=== PATIENT | female | born 1930 | race Caucasian/White ===

== ENCOUNTER 2016-11-14 21:56 | Inpatient (IN) | payer MEDICARE, OTHER ==
[~2016-11-14] VITALS: Ht 162.6 cm; Wt 63.2 kg
[~2016-11-14 21:56] MED LIST: ASPI81CH CHEW; PLAV75TA29 PO; PROT40TA PO; UMEC1AER INH
[2016-11-14 22:00] VITALS: BP 131/79; PULSE 111; RESP 20; TEMP 97.7; O2SAT 88; O2SAT 92
[2016-11-14] MEDS ORDERED: cefTRIAXone INJ 2,000 MG in SODIUM CHLORIDE 0.9% INJ 100 ML IV STA (22:11)
[2016-11-14] MEDS ORDERED: AZITHROMYCIN INJ 500 MG in SODIUM CHLOR 0.9% 250 ML INJ 250 ML IV STA (22:11)
[2016-11-14 22:12] VITALS: PULSE 109
[2016-11-14] MEDS ORDERED: RESP: ALBUTEROL 2.5 MG/IPRATROPIUM 0.5 MG NEB (SCH) INH ONE (22:15)
[2016-11-14] MEDS ORDERED: SODIUM CHLORIDE 0.9% FLUSH 5 ML FLUSH IVF PRN (22:15)
[2016-11-14 22:30] LABS: AUTOMATED NEUTROPHIL # 4.4 TH/MM3 (1.8-7.7); BASOPHIL % 0.6 % (0.0-2.0); EOSINOPHIL # 0.3 TH/MM3 (0-0.4); EOSINOPHIL % 3.3 % (0.0-4.0); HEMATOCRIT 41.8 % (35.0-46.0); HEMO FLAGS DIFF FINAL; LYMPH % 31.6 % (9.0-44.0); LYMPHOCYTE # 2.6 TH/MM3 (1.0-4.8); MEAN CORPUSCULAR HEMOGLOBIN 31.6 PG (27.0-34.0); MEAN CORPUSCULAR HGB CONC 32.9 % (32.0-36.0); MONO % 10.3 % (0.0-8.0); NEUT % 54.2 % (16.0-70.0); PLATELET COUNT 303 TH/MM3 (150-450); RED BLOOD COUNT 4.36 MIL/MM3 (4.00-5.30); RED CELL DISTRIBUTION WIDTH 14.2 % (11.6-17.2); WHITE BLOOD COUNT 8.2 TH/MM3 (4.0-11.0)
[2016-11-14 22:43] LABS: APTT (PATIENT) 28.5 SEC (24.3-30.1); INTERNATIONAL NORMALIZED RATIO 1.4 RATIO; PROTHROMBIN TIME - PATIENT 15.7 SEC (9.8-11.6)
[2016-11-14 22:58] LABS: ALKALINE PHOSPHATASE 57 U/L (45-117); ALT (GPT) 19 U/L (10-53); ANION GAP 5 MEQ/L (5-15); AST (GOT) 46 U/L (15-37); BICARBONATE 28.8 MEQ/L (21.0-32.0); BLOOD UREA NITROGEN 7 MG/DL (7-18); CHLORIDE 107 MEQ/L (98-107); CREATINE KINASE 136 U/L (26-192); GLOMERULAR FILTRATION RATE 59 ML/MIN (>89); MAGNESIUM 1.8 MG/DL (1.5-2.5); SODIUM (NA) 141 MEQ/L (136-145); TOTAL BILIRUBIN ADULT 0.9 MG/DL (0.2-1.0)
--- NOTE | 2016-11-14 23:04 | PD ---
HPI Chief Complaint: Respiratory Distress Time Seen by Provider: 22:09 Travel History International Travel<30 days: No Contact w/Intl Traveler<30days: No Traveled to known affect area: No History of Present Illness HPI The patient is an 86 year old female who presents to the [facility] emergency department with a history of coughing and congestion that first began approximately 3 weeks ago. She reports that she went and saw her primary care physician and was given a Z-Hansel. She reports that she thought that she was beginning to feel improved, however today her symptoms began to get worse again. She reports that she has coughing spells that precipitate terrible shortness of breath. She reports that it feels like all of the oxygen is " being sucked out of the room". She reports that she does have a history of COPD and is chronically O2 dependent on 3 L of nasal cannula O2. Ambulance services were called to her home and the patient was noted to be saturating on her usual 3 L nasal cannula 82%. The patient was noted to have a productive sounding cough, wheezes and rhonchi according to them, therefore they gave her albuterol nebulizer treatments 3 and Solu-Medrol 125 mg IV 1. On arrival, the patient reports feeling somewhat improved. Her O2 saturation on her usual 3 L is noted to be between 89 and 91%. The patient reports that over the last week her cough is productive of yellow sputum. The patient denies having any known fevers, however she reports having chills. The patient denies having any neck pain, chest pain, abdominal pain, vomiting, diarrhea, urinary symptoms, or neurologic symptoms. [facility] Past Medical History Narrative Medical The patient's past medical history is significant for COPD, history of a recent TIA, history of a prior cerebrovascular accident without any residual weakness, history of fibromyalgia, and hypertension. The patient reports having a history of congestive heart failure. The patient denies any prior history of myocardial infarction. Arthritis: Yes Asthma: No Anxiety: No Depression: No Heart Rhythm Problems: No Cancer: No Cardiovascular Problems: Yes High Cholesterol: No Chemotherapy: No Chest Pain: No Congestive Heart Failure: No COPD: Yes Cerebrovascular Accident: Yes (tia) Endocrine: No Genitourinary: Yes Hypertension: Yes Immune Disorder: No Kidney Stones: No Musculoskeletal: Yes (FIBROMALASIA) Neurologic: Yes Psychiatric: No Reproductive: No Respiratory: Yes (COPD 3L NC AT HOME CONTINUOUS) Migraines: No Radiation Therapy: No Renal Failure: No Seizures: No Sleep Apnea: No Menopausal: Yes Past Surgical History Narrative Surgical The patient's past surgical history is significant for a . Abdominal Surgery: Yes (HERNIA REPAIR) Cardiac Surgery: No Section: Yes Ear Surgery: No Endocrine Surgery: No Eye Surgery: No Genitourinary Surgery: No Gynecologic Surgery: Yes (C/ SECTION) Oral Surgery: No Thoracic Surgery: No Other Surgery: Yes Social History Alcohol Use: No Tobacco Use: No Substance Use: No Allergies-Medications (Allergen,Severity, Reaction): Coded Allergies: Cipro (Verified Allergy, Severe, Rash, 11/14/16) Penicillin (Verified Allergy, Severe, Rash, 11/14/16) Reported Meds & Prescriptions Reported Meds & Active Scripts Active Reported Anoro Ellipta Inh (Umeclidinium/Vilanterol) 62.5-25 Mcg/Act Aero 1 Puff INH DAILY Aspirin 81 Mg Chew 81 Mg CHEW DAILY Protonix (Pantoprazole Sodium) 40 Mg Tab 40 Mg PO DAILY Plavix (Clopidogrel Bisulfate) 75 Mg Tab 75 Mg PO DAILY Review of Systems Except as stated in HPI: all other systems reviewed are Neg General / Constitutional: Positive: Chills, No: Fever Eyes: No: Visual changes HENT: Positive: Rhinorrhea, Congestion, No: Headaches Cardiovascular: Positive: Dyspnea on exertion, No: Chest Pain or Discomfort Respiratory: Positive: Cough, Shortness of Breath, Wheezing, Sneezing Gastrointestinal: No: Nausea, Vomiting, Diarrhea, Abdominal Pain, Changes in Bowel Habits, Indigestion, Loss of Appetite Genitourinary: No: Dysuria Musculoskeletal: No: Pain Skin: No Rash Neurologic: Positive: Weakness (generalized weak), No: Focal Abnormalities, Paresthesia, Sensory Disturbance Psychiatric: No: Depression Endocrine: No: Polydipsia Hematologic/Lymphatic: No: Easy Bruising Physical Exam Narrative General: The patient is a well-developed well-nourished female, with noted recurrent cough on examination that is productive of yellow sputum. Head and Neck exam: Head is normocephalic atraumatic. Eyes: Pupils are equal round and reactive to light. Nose: Midline septum with pink mucous membranes Mouth: Dentition unremarkable. Moist mucus membranes. Posterior oropharynx is not erythematous. No tonsillar hypertrophy. Uvula midline. Airway patent. Neck: No palpable lymphadenopathy. No nuchal rigidity. No thyromegaly. Cardiovascular: Sinus tachycardia in the low 100 without murmurs, gallops, or rubs. No pulse deficit to the extremities and simultaneous auscultation and palpation of her radial artery. Lungs: Clear to auscultation bilaterally with occasional rhonchi that clear with coughing. No wheezes or crackles are audible. Abdomen: Soft, without tenderness to palpation in all 4 quadrants of the abdomen. No guarding, rebound, or rigidity. Normal bowel sounds are audible. Extremities: No clubbing or cyanosis. The patient has trace to 1+ pitting edema bilateral lower extremities. She reports that this is chronic and no worse than usual. 2 + pulses in all 4 extremities. Back: No spinous process tenderness to palpation. No costovertebral angle tenderness to palpation. Neurologic Exam: Grossly nonfocal. Skin Exam: No rash noted. Intact skin that is warm and dry. Data Data Last Documented VS Vital Signs Date Time Temp Pulse Resp B/P Pulse Ox O2 Delivery O2 Flow Rate FiO2 11/14/16 22:12 109 11/14/16 22:04 92 Nasal Cannula 4 11/14/16 22:00 97.7 20 131/79 Orders Complete Blood Count With Diff (11/14/16 22:09) Comprehensive Metabolic Panel (11/14/16 22:09) B-Type Natriuretic Peptide (11/14/16 22:09) Act Partial Throm Time (Ptt) (11/14/16 22:09) Prothrombin Time / Inr (Pt) (11/14/16 22:09) Magnesium (Mg) (11/14/16 22:09) Ckmb (Isoenzyme) Profile (11/14/16 22:09) Troponin I (11/14/16 22:09) Urinalysis - C+S If Indicated (11/14/16 22:09) Influenzae A/B Antigen (11/14/16 22:09) Blood Culture (11/14/16 22:09) Iv Access Insert/Monitor (11/14/16 22:09) Electrocardiogram (11/14/16 22:09) Ecg Monitoring (11/14/16 22:09) Oximetry (11/14/16 22:09) Oxygen Administration (11/14/16 22:09) Chest, Single Ap (11/14/16 22:09) Sodium Chloride 0.9% Flush (Ns Flush) (11/14/16 22:15) Albuterol-Ipratropium Neb (Duoneb Neb) (11/14/16 22:15) Lactic Acid Sepsis Protocol (11/14/16 22:09) Ceftriaxone Inj (Rocephin Inj) (11/14/16 22:11) Azithromycin Inj (Zithromax Inj) (11/14/16 22:11) CKMB (11/14/16 22:05) CKMB% (11/14/16 22:05) Nitroglycerin 2% Oint (Nitroglycerin 2% (11/14/16 23:45) Aspirin Chew (Aspirin Chew) (11/14/16 23:45) Heparin Infusion SY[place]NEY.Q1H (11/14/16 23:44) Heparin-D5w Inj (Heparin-D5w Inj) (11/14/16 23:45) Act Partial Throm Time (Ptt) (11/14/16 23:44) Cbc No Diff, Includes Plts (11/14/16 23:44) Cbc No Diff, Includes Plts (11/17/16 06:00) Act Partial Throm Time (Ptt) (11/15/16 06:44) Occult Blood (Hemoccult) Stool (11/14/16 23:44) Admit Order (Ed Use Only) (11/14/16 23:45) Labs Laboratory Tests Test 11/14/16 22:05 White Blood Count 8.2 TH/MM3 Red Blood Count 4.36 MIL/MM3 Hemoglobin 13.7 GM/DL Hematocrit 41.8 % Mean Corpuscular Volume 96.0 FL Mean Corpuscular Hemoglobin 31.6 PG Mean Corpuscular Hemoglobin 32.9 % Concent Red Cell Distribution Width 14.2 % Platelet Count 303 TH/MM3 Mean Platelet Volume 8.7 FL Neutrophils (%) (Auto) 54.2 % Lymphocytes (%) (Auto) 31.6 % Monocytes (%) (Auto) 10.3 % Eosinophils (%) (Auto) 3.3 % Basophils (%) (Auto) 0.6 % Neutrophils # (Auto) 4.4 TH/MM3 Lymphocytes # (Auto) 2.6 TH/MM3 Monocytes # (Auto) 0.8 TH/MM3 Eosinophils # (Auto) 0.3 TH/MM3 Basophils # (Auto) 0.0 TH/MM3 CBC Comment DIFF FINAL Differential Comment Prothrombin Time 15.7 SEC Prothromb Time International 1.4 RATIO Ratio Activated Partial 28.5 SEC Thromboplast Time Sodium Level 141 MEQ/L Potassium Level 4.8 MEQ/L Chloride Level 107 MEQ/L Carbon Dioxide Level 28.8 MEQ/L Anion Gap 5 MEQ/L Blood Urea Nitrogen 7 MG/DL Creatinine 0.90 MG/DL Estimat Glomerular Filtration 59 ML/MIN Rate Random Glucose 113 MG/DL Lactic Acid Level 1.1 mmol/L Calcium Level 8.5 MG/DL Magnesium Level 1.8 MG/DL Total Bilirubin 0.9 MG/DL Aspartate Amino Transf 46 U/L (AST/SGOT) Alanine Aminotransferase 19 U/L (ALT/SGPT) Alkaline Phosphatase 57 U/L Total Creatine Kinase 136 U/L Creatine Kinase MB 2.0 NG/ML Troponin I 6.44 NG/ML B-Type Natriuretic Peptide 1954 PG/ML Total Protein 7.0 GM/DL Albumin 2.8 GM/DL MDM Medical Decision Making Medical Screen Exam Complete: Yes Emergency Medical Condition: Yes Medical Record Reviewed: Yes Interpretation(s) Last Impressions Chest X-Ray 11/14/164 Signed Impressions: Service Date/Time: Monday, November 14, 2016 22:55 - CONCLUSION: Left base infiltrate. Dayton Reza MD Differential Diagnosis Pneumonia, versus influenza, versus congestive heart failure exacerbation, versus COPD exacerbation, versus acute coronary syndrome. Narrative Course During the course of the patients emergency department visit, the patients history, examination, and differential diagnosis were reviewed with the patient. The patient had IV access obtained and blood work sent for analysis. The patient was placed on a cardiac exercise physiologist with oximetry and blood pressure monitoring. An EKG was ordered. The patient's EKG shows a sinus tachycardia with occasional supraventricular premature complexes, marked right axis deviation is noted, a right bundle branch block is noted. No other acute abnormality is noted. The chest x-ray was ordered. A flu swab was sent. A lactic acid was sent, blood cultures 2 were ordered. The patient was provided a DuoNeb 1, Rocephin 2 g IV, azithromycin 500 mg IV. The patients laboratory studies were reviewed and remarkable for a white count of 8.2, hemoglobin 13.7, platelets 303 with 10.3 monocytes. CMP is remarkable for a glucose of 113, AST 46, CPK 136, troponin I 6.44, BNP is 1954, lactic acid 1.1, INR 1.4, urinalysis unremarkable. Given the patient's elevated troponin the patient was given aspirin 162 mg by mouth 1. The patient was given an inch of Nitropaste to the chest wall. The patient denies having any chest pain. The patient was started on heparin IV drip due to a suspected non- ST segment elevation myocardial infarction. The patient's case is discussed with Dr. Ferrari, the covering supervisor production for the patient's supervisor production, Dr. john he requested that the patient also be placed on metoprolol. The patient was given a low-dose of metoprolol given her prior wheezing. She was given 4.5 mg by mouth 1. Radiology studies were reviewed and remarkable for a chest x-ray that shows a left lower lobe infiltrate. The patients results were discussed with the patient, including the plan of care. I explained that further testing and/ or monitoring is indicated based on the patients history, examination, and/ or laboratory findings. Therefore, I recommended admission for additional evaluation. The patient expressed understanding and was agreeable with this plan. The patient was admitted to the hospital in guarded condition and [facility]. Sepsis Criteria SIRS Criteria (2 or more): Heart rate over 90 Sepsis Criteria (SIRS+source): Infect source susp/known Physician Communication Physician Communication The patient's case was discussed with Dr. Lester who did agree to admit the patient for further evaluation and treatment at this time. I spoke to Dr. Ferrari the covering supervisor production for the patient's supervisor production, Dr. Chirinos at 11:55 PM. He recommended that the patient be started on metoprolol in addition to the aspirin, nitroglycerin paste, and heparin that was previously started by me. Diagnosis Primary Impression: Left lower lobe pneumonia Qualified Code: J18.1 - Pneumonia of left lower lobe due to infectious organism Additional Impressions: Acute non-ST segment elevation myocardial infarction Hypoxemia COPD exacerbation Admitting Information Admitting Physician Requests: Admit Fozia Caballero MD Nov 14, 2016 23:04
[2016-11-14 23:09] LABS: POTASSIUM 4.8 MEQ/L (3.5-5.1)
--- NOTE | 2016-11-14 23:31 | RADRPT ---
EXAM DATE/TIME: 11/14/2016 22:55 [facility] COMPARISON: CHEST SINGLE AP, June 03, 2016, 14:15. INDICATIONS : Shortness of breath. MEDICAL HISTORY : Chronic obstructive pulmonary disease. SURGICAL HISTORY : None. ENCOUNTER: Initial ACUITY: 1 day PAIN SCORE: 0/10 LOCATION: Bilateral chest FINDINGS: There is consolidation in the left lung base. Right lung is stable and grossly clear. Cardiomediastin al contours are stable with borderline heart size. CONCLUSION: Left base infiltrate. Dayton Reza MD on November 14, 2016 at 23:29 Board Certified Radiologist. This report was verified electronically.
--- NOTE | 2016-11-14 23:37 | HHI.HP ---
HPI Service [facility] Primary Care Physician Krissy Villa MD Admission Diagnosis Diagnoses: (1) NSTEMI (non-ST elevated myocardial infarction) Diagnosis: Principal (2) COPD (chronic obstructive pulmonary disease) Diagnosis: Principal (3) Hypoxia Diagnosis: Principal (4) PNA (pneumonia) Diagnosis: Principal Travel History International Travel<30 Days: No Contact w/Intl Traveler <30 Da: No Traveled to Known Affected Are: No History of Present Illness This is an 86-year-old female with a PMH of HTN, COPD, O2 Dependent on 3L NC, Fibromyalgia and h/o TIA/CVA who was brought to the ER by EMS secondary to SOB and productive cough. Son provides most of the history, states symptoms have been ongoing for approx 2wks. Was seen by PCP and started on Z-Pack which she completed without significant improvement. Denies fever, chills or chest pain. Upon EMS arrival, pt noted to have O2 sat 82% on 3L w/ wheezing, s/p Solu- Medrol and DuoNeb w/ improvement. Son reports O2 sat normally "mid 80's" at home on oxygen. On arrival to ER, BP 131/79, HR 111, O2 sat 88% on 5L NC, Afebrile. Currently 95% O2 on NRM. CBC unremarkable. Chemistry essentially unremarkable. Troponin 6.44. BNP 1954. UA negative. ABG pH 7.41, PCO2 40, PO2 51. CXR with left base infiltrate. s/p Rocephin/Zithro in ER. Cardiology consulted by ER physician, started on Heparin gtt. Follows w/ Dr. Sal[place] and Dr. Brian Huynh as outpatient. Review of Systems Other ROS: 14 point review of systems otherwise negative. Past Family Social History Past Medical History PMH: HTN, COPD, O2 Dependent on 3L NC, Fibromyalgia and h/o TIA/CVA Past Surgical History PAST SURGICAL HISTORY: Hernia Repair, Allergies: Coded Allergies: Cipro (Verified Allergy, Severe, Rash, 11/14/16) Penicillin (Verified Allergy, Severe, Rash, 11/14/16) Family History PAST FAMILY HISTORY: Reviewed. No h/o DM or CAD Social History PAST SOCIAL HISTORY: Negative for alcohol, tobacco or drugs. Physical Exam Vital Signs Vital Signs Date Time Temp Pulse Resp B/P Pulse Ox O2 Delivery O2 Flow Rate FiO2 11/14/16 22:12 109 11/14/16 22:04 92 Nasal Cannula 4 11/14/16 22:00 92 Nasal Cannula 5.00 11/14/16 22:00 97.7 111 20 131/79 88 Physical Exam PE: GENERAL: Elderly white female in no acute distress. Currently on NRM. Son and [id number] at bedside. HEENT: PERRLA, EOMI. No scleral icterus or conjunctival pallor. No lid lag or facial droop. CARDIOVASCULAR: Regular rate and rhythm. No obvious murmurs to auscultation. No chest tenderness to palpation. RESPIRATORY: Occasional rhonchi and scattered wheezing. Clear to auscultation. Breath sounds equal bilaterally. GASTROINTESTINAL: Abdomen soft, non-tender, nondistended. BS normal. MUSCULOSKELETAL: Extremities without clubbing, cyanosis. 1+ pitting edema bilaterally. No obvious deformities. NEUROLOGICAL: Awake, alert and oriented x4. No focal neurologic deficits. Moving both upper and lower extremities spontaneously. Laboratory Laboratory Tests Test 11/14/16 22:05 White Blood Count 8.2 Red Blood Count 4.36 Hemoglobin 13.7 Hematocrit 41.8 Mean Corpuscular Volume 96.0 Mean Corpuscular Hemoglobin 31.6 Mean Corpuscular Hemoglobin 32.9 Concent Red Cell Distribution Width 14.2 Platelet Count 303 Mean Platelet Volume 8.7 Neutrophils (%) (Auto) 54.2 Lymphocytes (%) (Auto) 31.6 Monocytes (%) (Auto) 10.3 Eosinophils (%) (Auto) 3.3 Basophils (%) (Auto) 0.6 Neutrophils # (Auto) 4.4 Lymphocytes # (Auto) 2.6 Monocytes # (Auto) 0.8 Eosinophils # (Auto) 0.3 Basophils # (Auto) 0.0 CBC Comment DIFF FINAL Differential Comment Prothrombin Time 15.7 Prothromb Time International 1.4 Ratio Activated Partial 28.5 Thromboplast Time Sodium Level 141 Potassium Level 4.8 Chloride Level 107 Carbon Dioxide Level 28.8 Anion Gap 5 Blood Urea Nitrogen 7 Creatinine 0.90 Estimat Glomerular Filtration 59 Rate Random Glucose 113 Lactic Acid Level 1.1 Calcium Level 8.5 Magnesium Level 1.8 Total Bilirubin 0.9 Aspartate Amino Transf 46 (AST/SGOT) Alanine Aminotransferase 19 (ALT/SGPT) Alkaline Phosphatase 57 Total Creatine Kinase 136 Creatine Kinase MB 2.0 Troponin I 6.44 B-Type Natriuretic Peptide 1954 Total Protein 7.0 Albumin 2.8 Date/Time Procedure Status Source Growth 11/14/16 22:14 Influenza Types A,B Antigen ([place]) - Final Complete Nasal Aspirate NEGATIVE FOR FLU A AND B ANTIGEN.... 11/14/16 21:55 Aerobic Blood Culture Received Blood Peripheral Pending 11/14/16 21:55 Anaerobic Blood Culture Received Blood Peripheral Pending Result Diagram: 11/14/16220411/14/162204 Assessment and Plan Problem List: (1) NSTEMI (non-ST elevated myocardial infarction) ICD Code: I21.4 Status: Acute (2) COPD (chronic obstructive pulmonary disease) ICD Code: J44.9 Status: Chronic (3) PNA (pneumonia) ICD Code: J18.9 Status: Acute (4) Hypoxia ICD Code: R09.02 Status: Acute Assessment and Plan A/P: 1. NSTEMI: Trop 6.44, EKG w/ no acute ischemia, no c/o chest pain. Possibly due to demand ischemia from significant hypoxia. Follows w/ Dr. Parekh as outpatient, Dr. Vega penning[place]. Started on Heparin gtt in ER. Check serial cardiac enzymes. 2. COPD: Chronic Respiratory Failure w/ Acute Exacerbation. O2 Dependent at home on 3L NC. O2 sat 88% on 5L NC per EMS, currently on NRM w/ O2 sat 96%. S/ p Solu-Medrol, DuoNebs. Continue Solu-Medrol, DuoNeb q4 and q2h prn, Symbicort , Mucinex. Follows w/ Dr. Huynh as outpatient, will consult for further recommendations. 3. PNA: CXR w/ LLL infiltrate, images reviewed by me. S/p Z-Pack as outpatient for same. +productive cough w/ yellow-colored sputum. S/p Rocephin/ Zithro in ER, continue w/ IV Abx. Check Sputum Cultures. 4. Hypoxia: Multifactorial-secondary to COPD w/ O2 Dependence, PNA and possible ACS. 5. DVT Prophylaxis: On Heparin 6. Social work for d/c planning as needed. 7. Case discussed w/ ER physician at length. Physician Certification 2 Midnight Certification Type: Admission for Inpatient Services Order for Inpatient Services The services are ordered in accordance with Medicare regulations or non- Medicare payer requirements, as applicable. In the case of services not specified as inpatient-only, they are appropriately provided as inpatient services in accordance with the 2-midnight benchmark. Estimated LOS (days): 2 days is the estimated time the patient will need to remain in the hospital, assuming treatment plan goals are met and no additional complications. Post-Hospital Plan: Not yet determined Felicitas Lester MD Nov 14, 2016 23:37
[2016-11-14] MEDS ORDERED: NITROGLYCERIN 2% OINT 1 GM PACKET TOPICAL ONE (23:45)
[2016-11-14] MEDS ORDERED: ASPIRIN 81 MG CHEW TAB CHEW ONE (23:45)
[2016-11-15] VITALS (27 sets, daily range): BP systolic 105–138; BP diastolic 60–86; PULSE 77–104; RESP 18–25; TEMP 97.7–98.5; O2SAT 88–98
[2016-11-15] MEDS ORDERED: METOPROLOL TARTRATE 25 MG TAB PO ONE ×2
[2016-11-15] MEDS ORDERED: ACETAMINOPHEN 325 MG TAB PO PRN (00:15)
[2016-11-15] MEDS ORDERED: ONDANSETRON HCL 4 MG/2 ML VIAL IVP PRN (00:15)
[2016-11-15] MEDS ORDERED: MORPHINE SULFATE 4 MG/ML INJ IV PRN (00:15)
[2016-11-15] MEDS ORDERED: SODIUM CHLORIDE 0.9% FLUSH 5 ML FLUSH FLUSH PRN (00:15)
[2016-11-15] MEDS ORDERED: BISACODYL 10 MG SUPP PR PRN (00:15)
[2016-11-15 00:18] LABS: BLOOD, URINE NEG (NEG); COMMENT (UR) CULT NOT INDICATED; CULTURE IF INDICATED CULT NOT INDICATED; GLUCOSE,URINE NEG (NEG); KETONE, URINE NEG (NEG); MUCUS URINE FEW /lpf (OCC); NITRITE,URINE NEG (NEG); PH, URINE 5.5 (5.0-8.5); SQUAMOUS EPITHELIAL CELL URINE <1 /hpf (0-5); URINE COLOR YELLOW (YELLW/STRAW)
[2016-11-15 00:19] LABS: BLOOD GAS BASE EXCESS 0.5 mmol/L (-2-2); BLOOD GAS CARBOXYHEMOGLOBIN 1.9 % (0-4); BLOOD GAS HCO3 25 mmol/L (22-26); BLOOD GAS METHEMOGLOBIN 1.9 % (0-2); BLOOD GAS O2 HGB SATURATION 83 % (90-100); BLOOD GAS OXYGEN CONTENT 15.8 Vol % (12.0-20.0); BLOOD GAS PCO2 40 mmHg (38-42); BLOOD GAS PO2 51 mmHG (61-120); BLOOD GAS TOTAL HGB 13.6 G/DL (12.0-16.0); TEMP CORR TO 98.6
[2016-11-15 00:20] LABS: CRITICAL VALUE YES; DRAW SITE RT RADIAL; LITER FLOW 5 L/M; NUMBER OF ARTERIAL PUNCTURES 1; OXYGEN DEVICE NASAL CANNULA; STAT YES; ULNAR PULSE PRESENT
[2016-11-15] MEDS: HEPARIN-D5W INJ 250 ML IV SCH ×2 (00:25→23:22)
[2016-11-15] MEDS: BENZONATATE 100 MG CAP PO PRN ×2 (03:23→22:35)
[2016-11-15] MEDS: RESP: ALBUTEROL 2.5 MG/IPRATROPIUM 0.5 MG NEB (PRN) NEB ×3 (04:11→22:42)
[2016-11-15 06:00] LABS: APTT (PATIENT) 35.7 SEC (24.3-30.1)
[2016-11-15] MEDS ORDERED: RESP: ALBUTEROL 2.5 MG/IPRATROPIUM 0.5 MG NEB (SCH) NEB (08:00)
--- NOTE | 2016-11-15 08:47 | HHI.PR ---
Subjective Remarks f/u; respiratory failure/ NSTEMI says that her sob has improved. has occasional cough.no fever. denies any chest pain. Objective Vitals Vital Signs Date Time Temp Pulse Resp B/P Pulse Ox O2 Delivery O2 Flow Rate FiO2 11/15/16 07:33 97 Partial Rebreather 15.00 11/15/16 06:00 88 11/15/16 05:00 87 11/15/16 04:46 97.9 89 24 117/76 98 11/15/16 04:00 78 11/15/16 03:00 87 11/15/16 02:00 88 11/15/16 01:30 97.9 88 24 119/78 98 11/15/16 00:32 95 Partial Rebreather 12.00 11/15/16 00:26 94 Partial Rebreather 15 11/15/16 00:17 104 18 116/60 88 Nasal Cannula 5 11/14/16 22:12 109 11/14/16 22:04 92 Nasal Cannula 4 11/14/16 22:00 92 Nasal Cannula 5.00 11/14/16 22:00 97.7 111 20 131/79 88 I/O 11/14/16 11/14/16 11/14/16 11/15/16 11/15/16 11/15/16 07:00 15:00 23:00 07:00 15:00 23:00 Intake Total 238 ml Balance 238 ml Intake Oral 200 ml IV Total 38 ml Result Diagram: 11/14/16220411/14/162204 Imaging Last Impressions Chest X-Ray 11/14/162208 Signed Impressions: Service Date/Time: Monday, November 14, 2016 22:55 - CONCLUSION: Left base infiltrate. [place] Reza MD Objective Remarks GENERAL: elderly female, in no acute distress CARDIOVASCULAR: Regular rate and irregular rhythm without murmurs, gallops, or rubs. RESPIRATORY: diminished air entry in bases GASTROINTESTINAL: Abdomen soft, non-tender, nondistended. Normal, active bowel sounds MUSCULOSKELETAL: Extremities without clubbing, cyanosis, or edema. NEURO: Alert & Oriented x4 to person, place, time, situation. Moves all ext x4 Procedures none Medications and IVs Current Medications IV Flush (NS Flush) 2 ml UNSCH PRN IVF FLUSH AFTER USING IV ACCESS; Start 11/14 at 22:15; Stop 11/15/16 at 03:00; Status DC Albuterol/ Ipratropium 1 ampule 1 ampule ONCE ONCE INH Last administered on 22:14; Start 11/14/16 at 22:15; Stop 11/14/16 at 22:16; Status DC Ceftriaxone Sodium 2000 mg/ Sodium Chloride 100 ml @ 200 mls/hr ONCE STAT IV Last administered on 11/14/16 23:09; Start 11/14/16 at 22:11; Stop 11/14/16 at 22:40; Status DC Azithromycin/ Sodium Chloride (Zithromax Inj/ NS 250 ml Inj) 250 ml @ 250 mls/ hr ONCE STAT IV Last administered on 11/14/16 23:36; Start 11/14/16 at 22:11 ; Stop 11/14/16 at 23:10; Status DC Nitroglycerin (Nitroglycerin 2% Oint) 1 inch ONCE ONCE TOPICAL Last administered on 11/15/16 00:00; Start 11/14/16 at 23:45; Stop 11/14/16 at 23:46 ; Status DC Aspirin 162 mg 162 mg ONCE ONCE CHEW Last administered on 11/15/16 00:00; Start 11/14/16 at 23:45; Stop 11/14/16 at 23:46; Status DC Heparin Sodium/ Dextrose (Heparin-D5W Inj) 250 ml @ 0 mls/hr TITRATE IV Last administered on 11/15/16 00:25; Start 11/14/16 at 23:45 Metoprolol Tartrate (Lopressor) 25 mg ONCE ONCE PO ; Start 11/15/16 at 00:00; Stop 11/15/16 at 00:00; Status DC Metoprolol Tartrate 12.5 mg 12.5 mg ONCE ONCE PO Last administered on 00:31; Start 11/15/16 at 00:00; Stop 11/15/16 at 00:01; Status DC Ceftriaxone Sodium 1000 mg/ Sodium Chloride 100 ml @ 200 mls/hr Q24H IV ; Start 11/15/16 at 23:00 Azithromycin/ Sodium Chloride (Zithromax Inj/ NS 250 ml Inj) 250 ml @ 250 mls/ hr Q24H IV ; Start 11/15/16 at 23:00 Guaifenesin (Mucinex Er) 600 mg BID PO ; Start 11/15/16 at 09:00 Budesonide/ Formoterol Fumarate (Symbicort 160-4.5 Inh) 2 puff Q12HR INH ; Start 11/15/16 at 09:00 Albuterol/ Ipratropium (Duoneb Neb) 1 ampule Q4HR WHILE AWAKE NEB NEB Last administered on 11/15/16 07:31; Start 11/15/16 at 08:00 Albuterol/ Ipratropium (Duoneb Neb) 1 ampule Q2HR NEB PRN NEB SOB/WHEEZING Last administered on 11/15/16 04:11; Start 11/15/16 at 00:15 IV Flush (NS Flush) 2 ml UNSCH PRN FLUSH FLUSH AFTER USING IV ACCESS; Start at 00:15 IV Flush (NS Flush) 2 ml BID FLUSH ; Start 11/15/16 at 09:00 Ondansetron HCl (Zofran Inj) 4 mg Q6H PRN IVP NAUSEA OR VOMITING; Start at 00:15 Bisacodyl (Dulcolax Supp) 10 mg DAILY PRN [place] CONSTIPATION; Start 11/15/16 at 00 :15 Acetaminophen (Tylenol) 650 mg Q6H PRN PO FEVER/PAIN SCALE 1 TO 2; Start at 00:15 Acetaminophen/ Hydrocodone Bitart ([place] 5-325 Mg) 1 tab Q4H PRN PO PAIN SCALE 3 TO 5; Start 11/15/16 at 00:15 Morphine Sulfate (Morphine Inj) 2 mg Q3H PRN IV Pain 6-10; Start 11/15/16 at 00 :15 Benzonatate (Tessalon) 100 mg TID PRN PO cough interfering with rest Last administered on 11/15/16 03:23; Start 11/15/16 at 03:00 Carvedilol (Coreg) 3.125 mg Q12HR PO ; Start 11/15/16 at 09:00 Aspirin (Ecotrin Ec) 81 mg DAILY PO ; Start 11/15/16 at 09:00 Pravastatin Sodium (Pravachol) 20 mg DAILY PO ; Start 11/15/16 at 09:00 Spironolactone (Aldactone) 25 mg DAILY PO ; Start 11/15/16 at 09:00 A/P Assessment and Plan A/P 1. NSTEMI: Trop 6.44, EKG w/ no acute ischemia, no c/o chest pain. Possibly due to demand ischemia from significant hypoxia. Follows w/ Dr. Parekh as outpatient. Started on Heparin gtt in ER. continue aspirin , BB and statin- will check lipid panel- cardiology consulted. 2. acute on chronic respiratory failure due to COPD exacerbation and pneumonia ; start Solu-Medrol, DuoNeb q4 and q2h prn, Symbicort, Mucinex. continue IV antibiotics- follow the cultures. Follows w/ Dr. Huynh as outpatient. consulted for further recommendations. 3. DVT Prophylaxis: On Heparin Jose D Royal MD Nov 15, 2016 08:47
[2016-11-15 09:00] LABS: HDL CHOLESTEROL 60.1 MG/DL (40.0-60.0)
[2016-11-15] MEDS ORDERED: BUDESONIDE-FORMOTEROL 160/4.5 MCG INHALER INH SCH (09:00)
[2016-11-15] MEDS ORDERED: methylPREDNISolone SOD SUCC 40 MG/1 ML VIAL IV PUSH SCH (09:00)
[2016-11-15] MEDS: guaiFENesin E.R. 600 MG TAB PO SCH ×2 (10:23→21:41)
[2016-11-15] MEDS: SPIRONOLACTONE 25 MG TAB PO SCH (10:24)
[2016-11-15] MEDS: PRAVASTATIN SOD 20 MG TAB PO SCH (10:24)
[2016-11-15] MEDS: CARVEDILOL 3.125 MG TAB PO SCH ×2 (10:24→21:40)
[2016-11-15] MEDS: ASPIRIN EC 81 MG TABEC PO SCH (10:24)
[2016-11-15] MEDS: SODIUM CHLORIDE 0.9% FLUSH 5 ML FLUSH FLUSH SCH ×2 (10:25→21:41)
[2016-11-15] MEDS: ACETAMINOPHEN/HYDROcodone 325 MG/5 MG TAB PO PRN ×3 (10:25→21:44)
--- NOTE | 2016-11-15 12:01 | MB ---
cc: CARLOS EVANS M.D. DATE OF CONSULTATION: 11/15/2016 REASON FOR CONSULTATION Elevated cardiac enzymes, rule out myocardial infarction. HISTORY OF PRESENT ILLNESS Ms. 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 The patient states that over the past 2-3 weeks she has had an upper respiratory type infection with a severe cough productive of sputum. She saw her primary care physician, Dr. Villa, about 2 weeks ago who prescribed a Z-Hansel for her. She thought things might be getting better until yesterday when her cough worsened. She is normally on continuous 3 liters home oxygen therapy but her oxygen saturations were dipping down into the 70s. She came to the emergency room where she was also found to be hypoxemic with oxygen saturations in the 80s. She has been on a partial non-rebreather mask since that time. She denies any chest pain, just continuous coughing and shortness of breath. Denies any fever at this time. Her troponins were elevated between 6 and 7 with negative CPKs on routine labs on admission. She is currently sitting up in bed on a partial non-rebreather mask with mild to moderate shortness of breath. She denies any chest discomfort now or in the past. She has been taking all of her medication as directed. MEDICATIONS Medications prior to admission: 1. Plavix 75 mg daily. 2. Aspirin 81 mg daily. 3. Protonix 40 mg daily. 4. Cardizem CD 120 mg daily. 5. Xalatan eye drops. She is currently on: 1. Intravenous heparin. 2. Ceftriaxone. 3. Azithromycin. 4. DuoNeb nebulizers. ALLERGIES 1. INTRAVENOUS CONTRAST. 2. PENICILLIN. 3. CIPRO. PAST MEDICAL HISTORY 1. Recurrent UTIs. 2. COPD. 3. Pulmonary hypertension. 4. TIA. 5. Chronic dyspnea. 6. Fibromyalgia. 7. Anxiety disorder. Denies prior history of myocardial infarction or heart failure. PAST SURGICAL HISTORY Herniorrhaphy. FAMILY HISTORY Noncontributory. SOCIAL HISTORY Denies tobacco, alcohol or illicit drug use at this time. Currently living with her son. REVIEW OF SYSTEMS Denies lower extremity edema or claudication. Denies palpitations, lightheadedness or syncope, although she has had problems with that in the past. Denies any bleeding or clotting disorders. Except for that mentioned in the HPI her complete 12-point review of systems is otherwise negative. PHYSICAL EXAMINATION GENERAL: An 86-year-old white female lying in bed in moderate respiratory distress. VITAL SIGNS: Blood pressure 117/76 mmHg, heart rate 88 and regular, respiratory rate 24, temperature 97.9, oxygen saturation 97% on 15 liters, a partial on non-rebreather mask. HEENT: Head is normocephalic and atraumatic. Pupils equal, round and reactive to light. Sclera anicteric. Extraocular movements intact. NECK: Supple. There is no adenopathy. There is mild jugular venous distension noted at 45 degrees. Carotid upstrokes are normal. No bruits. Thyroid exam normal. LUNGS: Decreased breath sounds bilaterally with a few scattered wheezes. HEART: PMI is not displaced. S1, S2 are normal. There are no murmurs, gallops, clicks or rubs. ABDOMEN: Bowel sounds present. Soft, nontender. No hepatosplenomegaly, masses or bruits. EXTREMITIES: No cyanosis, clubbing or edema. Pulses are intact in the upper and lower extremities. There are no femoral bruits. 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 There is LVH with repolarization abnormalities. Abnormal EKG. Comparing admission EKG with an EKG available from May 21, 2016 there is no significant change. IMAGING Chest x-ray: Left base infiltrate. LABORATORY CBC: White count 8.2, hemoglobin 13.7, platelet count 303,000. Chemistries with a potassium 4.8, BUN 7, creatinine 0.9, calcium 8.5, lactic acid 1.1, AST 46. CPK 136 with a CPK-MB of 2.0. Troponin-I 6.44 on arrival yesterday evening, 6.17 at 5 o'clock this morning. IMPRESSION 1. Elevated troponin-I. Suspect type 2 myocardial infarction. 2. Acute on chronic hypoxemia. 3. Severe COPD. 4. Upper respiratory infection, possible pneumonia. 5. 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 6. Pulmonary hypertension. 7. Recent CVA in April 2016. RECOMMENDATIONS The patient will be placed back on aspirin and Plavix therapy. I switched her diltiazem over to Coreg 3.125 mg p.o. b.i.d. She probably has some underlying coronary artery disease presumably and we will go ahead and treat her for that but I suspect her elevated troponins are related to her severe hypoxemia recently. Will continue monitoring her and treating her for her underlying pulmonary infection and when she is feeling better from that decide on what further if any inpatient cardiac work-up will be needed. Continue intravenous heparin until tomorrow and then will switch her over to subcutaneous heparin. Restart spironolactone 25 mg daily. An echocardiogram has been scheduled to reevaluate her left ventricular function and pulmonary hypertension. I will follow her with you with further recommendations as needed. Thank you for allowing me to participate in the care of this patient. MD RUBEN Ferguson/RUFINO /8:42 AM /11:48 AM
--- NOTE | 2016-11-15 15:13 | MB ---
cc: CARLOS PEÑA M.D., R. STEVEN M.D. DATE OF CONSULTATION: 11/15/2016 HISTORY OF PRESENT ILLNESS Mrs. Brandt an 86-year-old white female known to me with obstructive lung disease, although she has never smoked, and has been chronically hypoxic requiring 2-3 liters of oxygen continuously at home for the last several years that I have known her. She also has underlying pulmonary hypertension thought to be due to diastolic heart failure. She presented to the emergency room today with a several-day history of increasing shortness of breath along with cough and purulent sputum. No hemoptysis. No chest pain. Part of the initial evaluation included laboratory and her troponins were quite elevated at 6 and her BNP was 1900. Clinically she did not appear to be in heart failure and apparent there were no significant EKG changes. Chest x-ray revealed cardiomegaly with some left basilar infiltrate suspected, obscured by the heart however. White count was normal at 8200, influenza antigen A and B were negative and blood cultures have been negative at 24 hours. The patient was started on antibiotics and aerosolized bronchodilators, and because of the marked elevation in troponin was placed on a heparin drip. Dr. Ferrari has been consulted who is covering for certified alcohol drug counselor, Dr. Peña. In talking to her today she is very comfortable at rest, not complaining of shortness of breath today and she has had no chest pain. She was getting a little edema before she presented but she thought it was because she was sitting up the last couple of days with her legs down to breathe better. PAST MEDICAL HISTORY 1. She has had two recent admissions here, one May 20 when she presented again with elevated troponins, and then she was in rehab after that. She had a TIA during that initial admission. To my knowledge she has never had a coronary event and noninvasive studies have been negative. 2. Fibromyalgia. 3. Prior hernia repair. 4. . SOCIAL HISTORY She is . She lives with her son, Sean, who cares for her. She has never smoked. She does not use alcohol. ALLERGIES CIPRO AND PENICILLIN CAUSED RASHES. REVIEW OF SYSTEMS She has had no headache. No visual change. No nausea, vomiting, abdominal pain or diarrhea. Some increased edema in her legs. No chest pain. No palpitations. Cough and shortness of breath have been the primary symptoms on presentation. MEDICATIONS Medicines are reviewed in the EMR. PHYSICAL EXAMINATION GENERAL: An elderly white female, comfortable at rest. VITAL SIGNS: Temperature 98 degrees, blood pressure 114/60, pulse 90, respirations 22. Sat is 97% currently on nasal oxygen at 4 liters. HEENT: Sclera anicteric. Mucous membranes are moist. NECK: Neck veins are not distended. CHEST: Quite clear. Some minimal basilar congestion but no wheezing. No basilar rales. HEART: Soft systolic murmur. No audible S3. ABDOMEN: Very obese but soft. EXTREMITIES: No pitting edema or calf tenderness. IMAGING DATA Chest x-ray as noted above, cardiomegaly with possible left lower lobe infiltrate. DISCUSSION Mrs. Brandt presents with a known history of hypertension, obesity, probable diastolic heart failure and underlying COPD oxygen-dependent, but no smoking history. This may be a left lower lobe pneumonia with hypoxemia and increased cardiac demand and cardiology is seeing her as well to evaluate the abnormal cardiac laboratories. I would suggest continuing her on aerosolized bronchodilators, drop the steroid dose back a bit, continue her antibiotics and try to collect a sputum if available. Further diagnostic and/or therapeutic intervention will depend on her ongoing clinical course and response to therapy. Thank you for asking me to see her with you in consultation. R. Brian Huynh MD RSW/RUFINO /11:42 AM /2:59 PM
[2016-11-15 15:52] LABS: APTT (PATIENT) 52.7 SEC (24.3-30.1)
--- NOTE | 2016-11-15 16:40 | EC ---
Study Study Date:11/15/2016 STUDY CONCLUSIONS SUMMARY - Left ventricle: The cavity size was normal. Wall thickness was normal. Systolic function was normal. The estimated ejection fraction was in the range of 55% to 60%. Wall motion was normal; there were no regional wall motion abnormalities. - Ventricular septum: Septal motion showed paradox. The contour showed diastolic flattening and systolic flattening. These changes are consistent with RV volume and pressure overload. - Mitral valve: Mild to moderate regurgitation directed eccentrically and posteriorly. - Right ventricle: The cavity size was severely dilated. Systolic function was reduced. - Right atrium: The atrium was moderately dilated. - Tricuspid valve: Moderate regurgitation. - Pulmonic valve: Mild regurgitation. - Pulmonary arteries: Systolic pressure was severely increased. If LV function is below 40, please consider prescribing an ACEI or ARB or document rationale for non-use. PROCEDURE DATA STUDY STATUS: Elective. Procedure: Transthoracic echocardiography. Image quality was good. Scanning was performed from the parasternal, apical, and subcostal acoustic windows. Study completion: The patient tolerated the procedure well. Transthoracic echocardiography. M-mode, complete 2D, complete spectral Doppler, and color Doppler. Patient status: Inpatient. CARDIAC ANATOMY LEFT VENTRICLE: The cavity size was normal. Wall thickness was normal. Systolic function was normal. The estimated ejection fraction was in the range of 55% to 60%. Wall motion was normal; there were no regional wall motion abnormalities. AORTIC VALVE: Trileaflet; normal thickness leaflets. Doppler: Transvalvular velocity was within the normal range. There was no stenosis. No regurgitation. AORTA: Aortic root: The aortic root was normal in size. MITRAL VALVE: Structurally normal valve. Doppler: Transvalvular velocity was within the normal range. There was no evidence for stenosis. Mild to moderate regurgitation directed eccentrically and posteriorly. LEFT ATRIUM: The atrium was normal in size. RIGHT VENTRICLE: The cavity size was severely dilated. Systolic function was reduced. VENTRICULAR SEPTUM: Septal motion showed paradox. The contour showed diastolic flattening and systolic flattening. These changes are consistent with RV volume and pressure overload. PULMONIC VALVE: Not well visualized. Doppler: Transvalvular velocity was within the normal range. There was no evidence for stenosis. Mild regurgitation. TRICUSPID VALVE: Structurally normal valve. Doppler: Transvalvular velocity was within the normal range. Moderate regurgitation. PULMONARY ARTERY: Systolic pressure was severely increased. RIGHT ATRIUM: The atrium was moderately dilated. PERICARDIUM: There was no pericardial effusion. SYSTEMIC VEINS: Inferior vena cava: The vessel was dilated. Prepared and signed by Dago Zeng [id number]
--- NOTE | 2016-11-15 19:28 | EKG ---
Date Performed: 11/14/2016 Time Performed: 22:28:37 PTAGE: 86 years EKG: SINUS TACHYCARDIA WITH OCCASIONAL SUPRAVENTRICULAR PREMATURE COMPLEXES LEFT ATRIAL ENLARGEM ENT MARKED RIGHT AXIS DEVIATION RIGHT BUNDLE BRANCH BLOCK MODERATE T-WAVE ABNORMALITY, CONSIDER LATER AL ISCHEMIA MODERATE T-WAVE ABNORMALITY, CONSIDER INFERIOR ISCHEMIA ABNORMAL ECG PREVIOUS TRACING : 05/21/2016 03.46 DOCTOR: Rafa Almanza Interpretating Date/Time 11/15/2016 19:25:00
[2016-11-15] MEDS: RESP: ALBUTEROL 2.5 MG/IPRATROPIUM 0.5 MG NEB (SCH) NEB (20:03)
[2016-11-15] MEDS: BENZOCAINE-MENTHOL (SUGAR FREE) 15 MG-3.6 MG LOZENGE BUCCAL PRN (21:40)
[2016-11-15] MEDS: methylPREDNISolone SOD SUCC 40 MG/1 ML VIAL IV PUSH SCH (21:41)
[2016-11-15] MEDS: cefTRIAXone INJ 1,000 MG in SODIUM CHLORIDE 0.9% INJ 100 ML IV SCH (21:41)
[2016-11-15] MEDS ORDERED: AZITHROMYCIN INJ 500 MG in SODIUM CHLOR 0.9% 250 ML INJ 250 ML IV SCH (23:00)
[2016-11-16] VITALS (24 sets, daily range): BP systolic 109–147; BP diastolic 69–86; PULSE 78–97; RESP 20; TEMP 97.5–98; O2SAT 88–95
[2016-11-16] MEDS: ACETAMINOPHEN/HYDROcodone 325 MG/5 MG TAB PO PRN ×4 (04:28→23:33)
[2016-11-16] MEDS ORDERED: FUROSEMIDE 40 MG/4 ML VIAL IV PUSH ONE (06:30)
[2016-11-16 06:53] LABS: APTT (PATIENT) 55.8 SEC (24.3-30.1)
[2016-11-16] MEDS: RESP: ALBUTEROL 2.5 MG/IPRATROPIUM 0.5 MG NEB (SCH) NEB ×3 (07:42→19:58)
--- NOTE | 2016-11-16 08:02 | PD.CARD.PN ---
Subjective Subjective Remarks Had trouble sleeping last night. Peristent cough and anxiety. Denies CP and SOB improving slowly. No fever. Objective Medications Current Medications Medications (Trade) Dose Ordered Sig/[place] Route PRN Reason Start Time Stop Time Status Last Admin Dose Admin Ceftriaxone Sodium 1000 mg/ Sodium Chloride 100 ml @ 200 mls/hr Q24H IV 11/15/16 23:00 11/15/16 21:41 Azithromycin/ Sodium Chloride (Zithromax Inj/ NS 250 ml Inj) 250 ml @ 250 mls/hr Q24H IV 11/15/16 23:00 11/15/16 21:59 Guaifenesin (Mucinex Er) 600 mg BID PO 11/15/16 09:00 11/15/16 21:41 IV Flush (NS Flush) 2 ml UNSCH PRN FLUSH FLUSH AFTER USING IV ACCESS 11/15/16 00:15 IV Flush (NS Flush) 2 ml BID FLUSH 11/15/16 09:00 11/15/16 21:41 Ondansetron HCl (Zofran Inj) 4 mg Q6H PRN IVP NAUSEA OR VOMITING 11/15/16 00:15 Bisacodyl (Dulcolax Supp) 10 mg DAILY PRN [place] CONSTIPATION 11/15/16 00:15 Acetaminophen (Tylenol) 650 mg Q6H PRN PO FEVER/PAIN SCALE 1 TO 2 11/15/16 00:15 Acetaminophen/ Hydrocodone Bitart ([place] 5-325 Mg) 1 tab Q4H PRN PO PAIN SCALE 3 TO 5 11/15/16 00:15 11/16/16 04:28 Morphine Sulfate (Morphine Inj) 2 mg Q3H PRN IV Pain 6-10 11/15/16 00:15 Benzonatate (Tessalon) 100 mg TID PRN PO cough interfering with rest 11/15/16 03:00 11/15/16 22:35 Carvedilol (Coreg) 3.125 mg Q12HR PO 11/15/16 09:00 11/15/16 21:40 Aspirin (Ecotrin Ec) 81 mg DAILY PO 11/15/16 09:00 11/15/16 10:24 Pravastatin Sodium (Pravachol) 20 mg DAILY PO 11/15/16 09:00 11/15/16 10:24 Spironolactone (Aldactone) 25 mg DAILY PO 11/15/16 09:00 11/15/16 10:24 Methylprednisolone Sodium Succinate (SoluMEDROL INJ) 40 mg BID IV PUSH 11/15/16 21:00 11/15/16 21:41 Benzocaine/Menthol (Cepacol Extra Ankur (Sugar Free)) 1 lozenge Q2HR PRN BUCCAL sore throat 11/15/16 11:45 11/15/16 21:40 Enoxaparin Sodium (Lovenox Inj) 40 mg Q24H SQ 11/16/16 08:00 Clopidogrel Bisulfate (Plavix) 75 mg DAILY PO 11/16/16 09:00 Vital Signs / I&O Vital Signs Date Time Temp Pulse Resp B/P Pulse Ox O2 Delivery O2 Flow Rate FiO2 11/16/16 07:42 95 Nasal Cannula 5.00 11/16/16 06:00 81 11/16/16 05:00 93 11/16/16 04:00 92 Nasal Cannula 5.00 11/16/16 04:00 91 11/16/16 04:00 98.0 83 20 136/84 92 11/16/16 03:00 86 11/16/16 02:00 78 11/16/16 01:00 85 11/16/16 00:00 84 11/16/16 00:00 97.9 95 20 147/85 88 11/16/16 00:00 88 Nasal Cannula 5.00 11/15/16 23:00 92 11/15/16 22:00 89 11/15/16 21:00 87 11/15/16 20:03 91 Nasal Cannula 6.00 11/15/16 20:00 91 Nasal Cannula 5.00 11/15/16 20:00 102 11/15/16 20:00 97.7 102 20 138/86 91 11/15/16 18:00 89 11/15/16 17:00 85 11/15/16 16:00 92 11/15/16 15:00 98.5 90 25 120/71 90 11/15/16 15:00 84 11/15/16 15:00 90 Nasal Cannula 6.00 Humidified 11/15/16 14:00 88 11/15/16 13:00 95 11/15/16 12:00 77 11/15/16 11:00 97.9 79 25 105/63 91 11/15/16 11:00 91 Nasal Cannula 5.00 Humidified 11/15/16 11:00 90 11/15/16 10:00 93 11/15/16 09:00 91 11/15/16 08:00 95 I/O 11/15/16 11/15/16 11/15/16 11/16/16 11/16/16 11/16/16 07:00 15:00 23:00 07:00 15:00 23:00 Intake Total 238 ml 720 ml 508 ml Output Total 600 ml Balance 238 ml 120 ml 508 ml Intake Oral 200 ml 720 ml 300 ml IV Total 38 ml 208 ml Output Urine Total 600 ml # Voids 2 # Bowel Movements 0 1 Physical Exam VSS, afebrile Mild JVD at 30 deg. Lungs: decreased BS, scatteres wheezes and rhonchi. Heart: RRR, no murmur. Ext: No C/C/E Neuro: Non-focal. Anxious. Laboratory Laboratory Tests Test 11/15/16 11/15/16 11/15/16 11/16/16 11:17 14:07 21:35 05:57 Troponin I 4.95 NG/ML Activated Partial 52.7 SEC 57.0 SEC 55.8 SEC Thromboplast Time Imaging Ech results reviewed. Normal LVEF. RV pressure and volume overload. Pulmonary HTN. Moderate MR/TR. Last 48 hours Impressions Chest X-Ray 11/14/162208 Signed Impressions: Service Date/Time: Monday, November 14, 2016 22:55 - CONCLUSION: Left base infiltrate. [place] Reza MD Assessment and Plan Problem List: (1) COPD exacerbation (2) Left lower lobe pneumonia (3) Hypoxia (4) Elevated brain natriuretic peptide (BNP) level (5) Elevated troponin (6) Pulmonary hypertension (7) Non-ST elevation myocardial infarction (NSTEMI), type 2 (8) Anxiety disorder Assessment and Plan Change IV heparin to enoxaparin today. Anxiolytics. Nebs probabably aggravating her anxiety as well. Lasix 40 mg IVP today only. Continue pulmonary Rx and antibiotics. Observe telemetry. Code Status Full Discussed Condition With Patient Problem Qualifiers (1) Left lower lobe pneumonia: Qualified Code: J18.1 - Pneumonia of left lower lobe due to infectious organism Vadim Peña MD Nov 16, 2016 08:02
[2016-11-16] MEDS: CARVEDILOL 3.125 MG TAB PO SCH ×2 (08:44→21:28)
[2016-11-16] MEDS: PRAVASTATIN SOD 20 MG TAB PO SCH (08:44)
[2016-11-16] MEDS: ASPIRIN EC 81 MG TABEC PO SCH (08:44)
[2016-11-16] MEDS: SODIUM CHLORIDE 0.9% FLUSH 5 ML FLUSH FLUSH SCH ×2 (08:44→21:28)
[2016-11-16] MEDS: UMECLIDINIUM 62.5 MCG/VILANTEROL 25 MCG INHALER INH SCH (08:44)
[2016-11-16] MEDS: methylPREDNISolone SOD SUCC 40 MG/1 ML VIAL IV PUSH SCH (08:44)
[2016-11-16] MEDS: CLOPIDOGREL 75 MG TAB PO SCH (08:44)
[2016-11-16] MEDS: SPIRONOLACTONE 25 MG TAB PO SCH (08:44)
[2016-11-16] MEDS: ENOXAPARIN SODIUM 40 MG/0.4 ML SYRINGE SQ SCH (08:45)
[2016-11-16] MEDS: guaiFENesin E.R. 600 MG TAB PO SCH ×2 (08:45→21:28)
[2016-11-16 11:30] LABS: AUTOMATED NEUTROPHIL # 7.7 TH/MM3 (1.8-7.7); BASOPHIL % 0.1 % (0.0-2.0); HEMATOCRIT 38.6 % (35.0-46.0); HEMO FLAGS DIFF FINAL; LYMPH % 7.9 % (9.0-44.0); LYMPHOCYTE # 0.7 TH/MM3 (1.0-4.8); MEAN CELL VOLUME 95.9 FL (80.0-100.0); MEAN CORPUSCULAR HEMOGLOBIN 31.4 PG (27.0-34.0); MEAN CORPUSCULAR HGB CONC 32.8 % (32.0-36.0); MONO % 7.9 % (0.0-8.0); NEUT % 84.1 % (16.0-70.0); PLATELET COUNT 273 TH/MM3 (150-450); RED BLOOD COUNT 4.03 MIL/MM3 (4.00-5.30); RED CELL DISTRIBUTION WIDTH 14.2 % (11.6-17.2); WHITE BLOOD COUNT 9.2 TH/MM3 (4.0-11.0)
[2016-11-16 12:05] LABS: ALKALINE PHOSPHATASE 50 U/L (45-117); ALT (GPT) 18 U/L (10-53); ANION GAP 9 MEQ/L (5-15); AST (GOT) 17 U/L (15-37); BICARBONATE 29.6 MEQ/L (21.0-32.0); BLOOD UREA NITROGEN 12 MG/DL (7-18); CHLORIDE 103 MEQ/L (98-107); GLOMERULAR FILTRATION RATE 61 ML/MIN (>89); POTASSIUM 3.7 MEQ/L (3.5-5.1); SODIUM (NA) 142 MEQ/L (136-145); TOTAL BILIRUBIN ADULT 0.4 MG/DL (0.2-1.0)
[2016-11-16] MEDS ORDERED: predniSONE 20 MG TAB PO SCH (13:30)
--- NOTE | 2016-11-16 13:43 | HHI.PR ---
Subjective Remarks Follow-up COPD and pneumonia. She is breathing better but complains of persistent cough. At home she uses 3 L currently on 5 L nasal cannula. According to her son, she has completed a course of Z-Hansel prior to admission. Discussed with RN Objective Vitals Vital Signs Date Time Temp Pulse Resp B/P Pulse Ox O2 Delivery O2 Flow Rate FiO2 11/16/16 13:04 86 11/16/16 12:02 93 11/16/16 11:57 90 Nasal Cannula 5.00 11/16/16 11:57 86 11/16/16 11:57 97.7 86 20 109/76 90 11/16/16 10:24 86 11/16/16 09:00 82 11/16/16 08:15 90 11/16/16 08:15 95 Nasal Cannula 5.00 11/16/16 08:15 97.5 90 20 134/86 95 11/16/16 07:42 95 Nasal Cannula 5.00 11/16/16 06:00 81 11/16/16 05:00 93 11/16/16 04:00 92 Nasal Cannula 5.00 11/16/16 04:00 91 11/16/16 04:00 98.0 83 20 136/84 92 11/16/16 03:00 86 11/16/16 02:00 78 11/16/16 01:00 85 11/16/16 00:00 84 11/16/16 00:00 97.9 95 20 147/85 88 11/16/16 00:00 88 Nasal Cannula 5.00 11/15/16 23:00 92 11/15/16 22:00 89 11/15/16 21:00 87 11/15/16 20:03 91 Nasal Cannula 6.00 11/15/16 20:00 91 Nasal Cannula 5.00 11/15/16 20:00 102 11/15/16 20:00 97.7 102 20 138/86 91 11/15/16 18:00 89 11/15/16 17:00 85 11/15/16 16:00 92 11/15/16 15:00 98.5 90 25 120/71 90 11/15/16 15:00 84 11/15/16 15:00 90 Nasal Cannula 6.00 Humidified 11/15/16 14:00 88 I/O 1/16/17 1/11/15/16 11/16/16 11/16/16 11/16/16 07:00 15:00 23:00 07:00 15:00 23:00 Intake Total 238 ml 720 ml 508 ml Output Total 600 ml Balance 238 ml 120 ml 508 ml Intake Oral 200 ml 720 ml 300 ml IV Total 38 ml 208 ml Output Urine Total 600 ml # Voids 2 # Bowel Movements 0 1 Result Diagram: 11/16/16 1055 11/16/16 1055 Objective Remarks GENERAL: Well-developed well-nourished in no distress SKIN: Warm and dry. HEAD: Atraumatic. Normocephalic. EYES: Pupils equal and round. No scleral icterus. No injection or drainage. ENT: No nasal bleeding or discharge. Mucous membranes pink and moist. NECK: Trachea midline. No JVD. CARDIOVASCULAR: Regular rate and rhythm. RESPIRATORY: No accessory muscle use. Decreased Breath sounds equal bilaterally. GASTROINTESTINAL: Abdomen soft, non-tender, nondistended. MUSCULOSKELETAL: Extremities without clubbing, cyanosis but with bilateral lower extremity edema right greater than left which is chronic. No obvious deformities. NEUROLOGICAL: Awake and alert. No obvious cranial nerve deficits. Motor grossly within normal limits. Five out of 5 muscle strength in the arms and legs. Normal speech. PSYCHIATRIC: Appropriate mood and affect; insight and judgment normal. Procedures none A/P Problem List: (1) NSTEMI (non-ST elevated myocardial infarction) ICD Code: I21.4 Status: Acute (2) COPD (chronic obstructive pulmonary disease) ICD Code: J44.9 Status: Chronic (3) PNA (pneumonia) ICD Code: J18.9 Status: Acute (4) Hypoxia ICD Code: R09.02 Status: Acute Assessment and Plan 1. NSTEMI: Trop 6.44, EKG w/ no acute ischemia, no c/o chest pain. Possibly due to demand ischemia from significant hypoxia. Follows w/ Dr. Zaidi as outpatient. S/p Heparin gtt continue aspirin , BB and statin 2. acute on chronic respiratory failure due to COPD exacerbation and pneumonia ; Solu-Medrol, DuoNeb q4 and q2h prn, Symbicort, Mucinex. Improving switch to by mouth prednisone and continue IV Rocephin 3. Hyperlipidemia. Continue statin Consult PT DVT Prophylaxis: On Heparin drip. Discharge Planning Dc in 1-2 days Jorge Hummel MD Nov 16, 2016 13:43
[2016-11-16] MEDS ORDERED: PILL SPLITTER OTHER PRN (15:15)
[2016-11-16] MEDS: BENZONATATE 100 MG CAP PO PRN (19:07)
[2016-11-16] MEDS: cefTRIAXone INJ 1,000 MG in SODIUM CHLORIDE 0.9% INJ 100 ML IV SCH (21:28)
[2016-11-17] VITALS (21 sets, daily range): BP systolic 128–146; BP diastolic 52–87; PULSE 81–92; RESP 20–24; TEMP 97.4–98.9; O2SAT 89–94
[2016-11-17] MEDS: BENZONATATE 100 MG CAP PO PRN ×3 (01:12→20:07)
[2016-11-17] MEDS ORDERED: ALPRAZolam 0.25 MG TAB PO PRN ×2 (02:30→10:30)
[2016-11-17] MEDS: ACETAMINOPHEN/HYDROcodone 325 MG/5 MG TAB PO PRN (05:37)
[2016-11-17 06:55] LABS: BICARBONATE 32.6 MEQ/L (21.0-32.0); POTASSIUM 3.5 MEQ/L (3.5-5.1)
[2016-11-17] MEDS: RESP: ALBUTEROL 2.5 MG/IPRATROPIUM 0.5 MG NEB (SCH) NEB ×3 (07:39→19:26)
--- NOTE | 2016-11-17 08:49 | PD.CARD.PN ---
Subjective Subjective Remarks Slowly improving cough and breathing better. Denies CP. Objective Medications Current Medications Medications (Trade) Dose Ordered Sig/Selma Route PRN Reason Start Time Stop Time Status Last Admin Dose Admin Ceftriaxone Sodium/Sodium Chloride (Rocephin Inj/NS Inj) 100 ml @ 200 mls/hr Q24H IV 11/15/16 23:00 11/16/16 21:28 Guaifenesin (Mucinex Er) 600 mg BID PO 11/15/16 09:00 11/16/16 21:28 IV Flush (NS Flush) 2 ml UNSCH PRN FLUSH FLUSH AFTER USING IV ACCESS 11/15/16 00:15 IV Flush (NS Flush) 2 ml BID FLUSH 11/15/16 09:00 11/16/16 21:28 Ondansetron HCl (Zofran Inj) 4 mg Q6H PRN IVP NAUSEA OR VOMITING 11/15/16 00:15 Bisacodyl (Dulcolax Supp) 10 mg DAILY PRN [place] CONSTIPATION 11/15/16 00:15 Acetaminophen (Tylenol) 650 mg Q6H PRN PO FEVER/PAIN SCALE 1 TO 2 11/15/16 00:15 Benzonatate (Tessalon) 100 mg TID PRN PO cough interfering with rest 11/15/16 03:00 11/17/16 01:12 Carvedilol (Coreg) 3.125 mg Q12HR PO 11/15/16 09:00 11/16/16 21:28 Aspirin (Ecotrin Ec) 81 mg DAILY PO 11/15/16 09:00 11/16/16 08:44 Pravastatin Sodium (Pravachol) 20 mg DAILY PO 11/15/16 09:00 11/16/16 08:44 Spironolactone (Aldactone) 25 mg DAILY PO 11/15/16 09:00 11/16/16 08:44 Benzocaine/Menthol (Cepacol Extra Ankur (Sugar Free)) 1 lozenge Q2HR PRN BUCCAL sore throat 11/15/16 11:45 11/15/16 21:40 Enoxaparin Sodium (Lovenox Inj) 40 mg Q24H SQ 11/16/16 08:00 11/16/16 08:45 Clopidogrel Bisulfate (Plavix) 75 mg DAILY PO 11/16/16 09:00 11/16/16 08:44 Guaifenesin/ Codeine Phosphate (Robitussin Ac 200-20 Mg/10 ml Liq) 10 ml Q4H PRN PO COUGH 11/16/16 13:30 Prednisone (Deltasone) 30 mg DAILY PO 11/17/16 09:00 Miscellaneous (Pill Splitter) 1 ea UNSCH PRN OTHER SEE LABEL COMMENTS 11/16/16 15:15 Alprazolam (Xanax) 0.125 mg Q8H PRN PO ANXIETY 11/17/16 10:30 UNV Vital Signs / I&O Vital Signs Date Time Temp Pulse Resp B/P Pulse Ox O2 Delivery O2 Flow Rate FiO2 11/17/16 07:52 Nasal Cannula 4.00 11/17/16 07:40 90 Nasal Cannula 4.00 11/17/16 05:00 85 11/17/16 04:00 97.5 86 21 128/77 91 11/17/16 04:00 81 11/17/16 04:00 91 Nasal Cannula 4.00 11/17/16 03:00 83 11/17/16 02:00 85 11/17/16 01:00 87 11/17/16 00:00 89 11/17/16 00:00 91 Nasal Cannula 4.00 11/17/16 00:00 97.4 86 20 140/86 89 11/16/16 23:00 84 11/16/16 22:00 94 11/16/16 21:00 93 11/16/16 20:00 91 Nasal Cannula 4.00 11/16/16 20:00 97 11/16/16 20:00 97.6 95 20 141/85 95 11/16/16 19:58 89 Nasal Cannula 4.00 11/16/16 18:01 82 11/16/16 17:26 85 11/16/16 16:08 86 11/16/16 15:30 98.0 92 20 135/69 92 11/16/16 15:30 92 11/16/16 15:30 92 Nasal Cannula 3.00 11/16/16 14:32 93 11/16/16 14:09 18 11/16/16 13:04 86 11/16/16 12:02 93 11/16/16 11:57 90 Nasal Cannula 5.00 11/16/16 11:57 86 11/16/16 11:57 97.7 86 20 109/76 90 11/16/16 10:24 86 11/16/16 09:00 82 I/O 11/16/16 11/16/16 11/16/16 11/17/16 11/17/16 11/17/16 07:00 15:00 23:00 07:00 15:00 23:00 Intake Total 508 ml 480 ml 340 ml Output Total 2700 ml 700 ml Balance 508 ml -2220 ml -360 ml Intake Oral 300 ml 480 ml 240 ml IV Total 208 ml 100 ml Output Urine Total 2700 ml 700 ml # Voids 2 # Bowel Movements 1 0 Physical Exam VSS, afebrile Mild JVD at 30 deg. Lungs: decreased BS, scattered rhonchi. Heart: RRR, no murmur. Ext: No C/C/E Neuro: Non-focal. Anxious. Laboratory Laboratory Tests Test 11/16/16 11/17/16 10:55 05:55 White Blood Count 9.2 TH/MM3 Red Blood Count 4.03 MIL/MM3 Hemoglobin 12.6 GM/DL Hematocrit 38.6 % Mean Corpuscular Volume 95.9 FL Mean Corpuscular Hemoglobin 31.4 PG Mean Corpuscular Hemoglobin 32.8 % Concent Red Cell Distribution Width 14.2 % Platelet Count 273 TH/MM3 Mean Platelet Volume 8.5 FL Neutrophils (%) (Auto) 84.1 % Lymphocytes (%) (Auto) 7.9 % Monocytes (%) (Auto) 7.9 % Eosinophils (%) (Auto) 0.0 % Basophils (%) (Auto) 0.1 % Neutrophils # (Auto) 7.7 TH/MM3 Lymphocytes # (Auto) 0.7 TH/MM3 Monocytes # (Auto) 0.7 TH/MM3 Eosinophils # (Auto) 0.0 TH/MM3 Basophils # (Auto) 0.0 TH/MM3 CBC Comment DIFF FINAL Differential Comment Sodium Level 142 MEQ/L 140 MEQ/L Potassium Level 3.7 MEQ/L 3.5 MEQ/L Chloride Level 103 MEQ/L 103 MEQ/L Carbon Dioxide Level 29.6 MEQ/L 32.6 MEQ/L Anion Gap 9 MEQ/L 4 MEQ/L Blood Urea Nitrogen 12 MG/DL 15 MG/DL Creatinine 0.88 MG/DL 0.74 MG/DL Estimat Glomerular Filtration 61 ML/MIN 74 ML/MIN Rate Random Glucose 128 MG/DL 111 MG/DL Calcium Level 8.4 MG/DL 8.5 MG/DL Total Bilirubin 0.4 MG/DL Aspartate Amino Transf 17 U/L (AST/SGOT) Alanine Aminotransferase 18 U/L (ALT/SGPT) Alkaline Phosphatase 50 U/L Total Protein 6.6 GM/DL Albumin 2.8 GM/DL Assessment and Plan Problem List: (1) COPD exacerbation (2) Left lower lobe pneumonia (3) Hypoxia (4) Elevated brain natriuretic peptide (BNP) level (5) Elevated troponin (6) Pulmonary hypertension (7) Non-ST elevation myocardial infarction (NSTEMI), type 2 (8) Anxiety disorder Assessment and Plan Anxiolytics prn. Continue pulmonary Rx and antibiotics. Observe telemetry. Plans for conservative management from cardiac standpoint unless progressive suspicious symptoms occur. Discussed Condition With Patient. Problem Qualifiers (1) Left lower lobe pneumonia: Qualified Code: J18.1 - Pneumonia of left lower lobe due to infectious organism Vadim Peña MD Nov 17, 2016 08:49
[2016-11-17] MEDS: SODIUM CHLORIDE 0.9% FLUSH 5 ML FLUSH FLUSH SCH ×2 (09:00→20:08)
[2016-11-17] MEDS: ACETAMINOPHEN/HYDROcodone 325 MG/10 MG TAB PO PRN ×3 (09:05→20:08)
[2016-11-17] MEDS: ENOXAPARIN SODIUM 40 MG/0.4 ML SYRINGE SQ SCH (09:06)
[2016-11-17] MEDS: PRAVASTATIN SOD 20 MG TAB PO SCH (09:06)
[2016-11-17] MEDS: guaiFENesin E.R. 600 MG TAB PO SCH ×2 (09:06→20:08)
[2016-11-17] MEDS: CLOPIDOGREL 75 MG TAB PO SCH (09:06)
[2016-11-17] MEDS: ASPIRIN EC 81 MG TABEC PO SCH (09:07)
[2016-11-17] MEDS: CARVEDILOL 3.125 MG TAB PO SCH ×2 (09:07→20:07)
[2016-11-17] MEDS: UMECLIDINIUM 62.5 MCG/VILANTEROL 25 MCG INHALER INH SCH (09:07)
[2016-11-17] MEDS: SPIRONOLACTONE 25 MG TAB PO SCH (09:07)
[2016-11-17] MEDS: predniSONE 20 MG TAB PO SCH (09:07)
[2016-11-17] MEDS ORDERED: POTASSIUM CHLORIDE 10 MEQ CONTROLLED RELEASE TAB PO ONE (10:15)
--- NOTE | 2016-11-17 13:14 | HHI.PR ---
Subjective Remarks Follow-up COPD. States she had a better sleep with less coughing. Improving dyspnea on exertion but with limited activity only able to ambulate from bed to chair. She does not want to go home today. Still on 4 L. Discussed with RN Objective Vitals Vital Signs Date Time Temp Pulse Resp B/P Pulse Ox O2 Delivery O2 Flow Rate FiO2 11/17/16 12:00 92 11/17/16 12:00 98.9 88 22 131/84 90 11/17/16 11:00 90 11/17/16 10:07 22 11/17/16 10:00 86 11/17/16 09:00 85 11/17/16 08:00 82 11/17/16 08:00 98.9 85 22 146/79 91 11/17/16 07:52 Nasal Cannula 4.00 11/17/16 07:40 90 Nasal Cannula 4.00 11/17/16 07:00 82 11/17/16 05:00 85 11/17/16 04:00 97.5 86 21 128/77 91 11/17/16 04:00 81 11/17/16 04:00 91 Nasal Cannula 4.00 11/17/16 03:00 83 11/17/16 02:00 85 11/17/16 01:00 87 11/17/16 00:00 89 11/17/16 00:00 91 Nasal Cannula 4.00 11/17/16 00:00 97.4 86 20 140/86 89 11/16/16 23:00 84 11/16/16 22:00 94 11/16/16 21:00 93 11/16/16 20:00 91 Nasal Cannula 4.00 11/16/16 20:00 97 11/16/16 20:00 97.6 95 20 141/85 95 11/16/16 19:58 89 Nasal Cannula 4.00 11/16/16 18:01 82 11/16/16 17:26 85 11/16/16 16:08 86 11/16/16 15:30 98.0 92 20 135/69 92 11/16/16 15:30 92 11/16/16 15:30 92 Nasal Cannula 3.00 11/16/16 14:32 93 11/16/16 14:09 18 I/O 11/16/16 11/16/16 11/16/16 11/17/16 11/17/16 1/18/17 07:00 15:00 23:00 07:00 15:00 23:00 Intake Total 508 ml 480 ml 340 ml Output Total 2700 ml 700 ml Balance 508 ml -2220 ml -360 ml Intake Oral 300 ml 480 ml 240 ml IV Total 208 ml 100 ml Output Urine Total 2700 ml 700 ml # Voids 2 # Bowel Movements 1 0 Result Diagram: 11/16/16 1055 11/17/16 0555 Objective Remarks GENERAL: Well-developed well-nourished in no distress on 4 L SKIN: Warm and dry. HEAD: Atraumatic. Normocephalic. EYES: Pupils equal and round. No scleral icterus. No injection or drainage. ENT: No nasal bleeding or discharge. Mucous membranes pink and moist. NECK: Trachea midline. No JVD. CARDIOVASCULAR: Regular rate and rhythm. RESPIRATORY: No accessory muscle use. Decreased Breath sounds equal bilaterally. GASTROINTESTINAL: Abdomen soft, non-tender, nondistended. MUSCULOSKELETAL: Extremities without clubbing, cyanosis but with bilateral lower extremity edema right greater than left which is chronic. No obvious deformities. NEUROLOGICAL: Awake and alert. No obvious cranial nerve deficits. Motor grossly within normal limits. Five out of 5 muscle strength in the arms and legs. Normal speech. PSYCHIATRIC: Appropriate mood and affect; insight and judgment normal. Procedures none A/P Problem List: (1) NSTEMI (non-ST elevated myocardial infarction) ICD Code: I21.4 Status: Acute (2) COPD (chronic obstructive pulmonary disease) ICD Code: J44.9 Status: Chronic (3) PNA (pneumonia) ICD Code: J18.9 Status: Acute (4) Hypoxia ICD Code: R09.02 Status: Acute Assessment and Plan 1. NSTEMI: Trop 6.44, EKG w/ no acute ischemia, no c/o chest pain. Possibly due to demand ischemia from significant hypoxia. Follows w/ Dr. Zaidi as outpatient. S/p Heparin gtt continue aspirin , BB and statin 2. acute on chronic respiratory failure due to COPD exacerbation and pneumonia ; improving slowly Continue prednisone, DuoNeb q4 and q2h prn, Symbicort, Mucinex and wean oxygen. Switch IV Rocephin to by mouth Ceftin 3. Hyperlipidemia. Continue statin Consult PT DVT Prophylaxis: Lovenox Discharge Planning Dc in 1-2 days. Not IV for discharge patient still on 4 L Jorge Hummel MD Nov 17, 2016 13:14
[2016-11-17] MEDS ORDERED: CARV3.125 PO (13:20)
[2016-11-17] MEDS ORDERED: Spironolactone PO (13:20)
[2016-11-17] MEDS ORDERED: CEFT500T3 PO (13:20)
[2016-11-17] MEDS ORDERED: HYDR-3583 PO (13:20)
[2016-11-17] MEDS ORDERED: ALPR.25 PO (13:20)
[2016-11-17] MEDS ORDERED: PRAV20TA PO (13:20)
--- NOTE | 2016-11-17 13:21 | HHI.DCPOC ---
Discharge Care Plan Diagnosis: (1) Non-ST elevation myocardial infarction (NSTEMI), type 2 (2) COPD exacerbation (3) Left lower lobe pneumonia Your Health Problems Are: Difficulty with ADL Exercise Tolerance Goals to Promote Your Health * To prevent worsening of your condition and complications * To maintain your health at the optimal level Directions to Meet Your Goals Take your medications as prescribed Follow your dietary instruction Follow activity as directed Keep your appointments as scheduled Take your immunizations and boosters as scheduled If your symptoms worsen call your PCP, if no PCP go to Urgent Care Center or Emergency Room Smoking is Dangerous to Your Health. Avoid second hand smoke Call the 24-hour hour crisis hotline for domestic abuse at Jorge Hummel MD Nov 17, 2016 13:20
[2016-11-17] MEDS ORDERED: SPIR25 PO (13:22)
--- NOTE | 2016-11-17 13:24 | HHI.FF ---
Face to Face Verification Diagnosis: (1) Non-ST elevation myocardial infarction (NSTEMI), type 2 (2) COPD exacerbation (3) Left lower lobe pneumonia Physical Therapy Order: Evaluate and Treat, Improve ambulation, Strength and gait training Home Health Nursing Order: Medical education Signs/symptoms of disease process Oxygen administration education Medication education-adverse effect Nursing assessment with vital signs I have seen patient Cornelia Brandt on 11/17/16. My clinical findings support the need for the requested home health care services because: Ltd mobility - disease progression Patient has SOB I certify that my clinical findings support that this patient is homebound because: Hx COPD- exertion dyspnea/weakness Jorge Hummel MD Nov 17, 2016 13:24
[2016-11-17] MEDS: guaiFENesin/CODEINE SYRUP 200 MG/20 MG/10 ML CUP PO PRN (16:17)
[2016-11-17] MEDS: CEFUROXIME AXETIL 500 MG TAB PO SCH (20:11)
[2016-11-18] VITALS (23 sets, daily range): BP systolic 114–142; BP diastolic 67–90; PULSE 72–100; RESP 16–22; TEMP 97.5–98.7; O2SAT 91–100
[2016-11-18] MEDS: guaiFENesin/CODEINE SYRUP 200 MG/20 MG/10 ML CUP PO PRN ×3 (01:56→21:57)
[2016-11-18] MEDS: BENZONATATE 100 MG CAP PO PRN (01:57)
[2016-11-18] MEDS: BENZOCAINE-MENTHOL (SUGAR FREE) 15 MG-3.6 MG LOZENGE BUCCAL PRN (01:57)
[2016-11-18] MEDS: ACETAMINOPHEN/HYDROcodone 325 MG/10 MG TAB PO PRN ×2 (03:19→10:28)
--- NOTE | 2016-11-18 06:54 | PD.CARD.PN ---
Subjective Subjective Remarks Feels terrible. Persistent minimally productive cough is her main c/o. Can't sleep. No fever. Denies CP or SOB. Objective Medications Current Medications Medications (Trade) Dose Ordered Sig/Selma Route PRN Reason Start Time Stop Time Status Last Admin Dose Admin Guaifenesin (Mucinex Er) 600 mg BID PO 11/15/16 09:00 11/17/16 20:08 IV Flush (NS Flush) 2 ml UNSCH PRN FLUSH FLUSH AFTER USING IV ACCESS 11/15/16 00:15 IV Flush (NS Flush) 2 ml BID FLUSH 11/15/16 09:00 11/17/16 20:08 Ondansetron HCl (Zofran Inj) 4 mg Q6H PRN IVP NAUSEA OR VOMITING 11/15/16 00:15 Bisacodyl (Dulcolax Supp) 10 mg DAILY PRN [place] CONSTIPATION 11/15/16 00:15 Acetaminophen (Tylenol) 650 mg Q6H PRN PO FEVER 11/15/16 00:15 Benzonatate (Tessalon) 100 mg TID PRN PO cough interfering with rest 11/15/16 03:00 11/18/16 01:57 Carvedilol (Coreg) 3.125 mg Q12HR PO 11/15/16 09:00 11/17/16 20:07 Aspirin (Ecotrin Ec) 81 mg DAILY PO 11/15/16 09:00 11/17/16 09:07 Pravastatin Sodium (Pravachol) 20 mg DAILY PO 11/15/16 09:00 11/17/16 09:06 Spironolactone (Aldactone) 25 mg DAILY PO 11/15/16 09:00 11/17/16 09:07 Benzocaine/Menthol (Cepacol Extra Ankur (Sugar Free)) 1 lozenge Q2HR PRN BUCCAL sore throat 11/15/16 11:45 11/18/16 01:57 Enoxaparin Sodium (Lovenox Inj) 40 mg Q24H SQ 11/16/16 08:00 11/17/16 09:06 Clopidogrel Bisulfate (Plavix) 75 mg DAILY PO 11/16/16 09:00 11/17/16 09:06 Guaifenesin/ Codeine Phosphate (Robitussin Ac 200-20 Mg/10 ml Liq) 10 ml Q4H PRN PO COUGH 11/16/16 13:30 11/18/16 05:33 Prednisone (Deltasone) 30 mg DAILY PO 11/17/16 09:00 11/17/16 09:07 Miscellaneous (Pill Splitter) 1 ea UNSCH PRN OTHER SEE LABEL COMMENTS 11/16/16 15:15 Alprazolam (Xanax) 0.125 mg Q8H PRN PO ANXIETY 11/17/16 10:30 Acetaminophen/ Hydrocodone Bitart (Sellers 10-325 Mg) 1 tab Q6H PRN PO PAIN SCALE 1 TO 10/COUGH 11/17/16 08:45 11/18/16 03:19 Cefuroxime Axetil (Ceftin) 500 mg Q12HR PO 11/17/16 21:00 11/28/16 20:59 11/17/16 20:11 Vital Signs / I&O Vital Signs Date Time Temp Pulse Resp B/P Pulse Ox O2 Delivery O2 Flow Rate FiO2 11/18/16 04:24 94 Nasal Cannula 3.00 11/18/16 04:00 97.5 85 20 132/86 92 11/18/16 04:00 85 11/18/16 00:14 72 11/18/16 00:14 98.7 72 16 114/67 100 11/18/16 00:06 94 Nasal Cannula 3.00 11/17/16 20:00 92 11/17/16 20:00 94 Nasal Cannula 3.00 11/17/16 20:00 97.7 92 20 145/87 93 11/17/16 19:29 94 Nasal Cannula 4.00 11/17/16 18:00 90 11/17/16 17:26 22 11/17/16 17:00 88 11/17/16 16:00 92 11/17/16 16:00 Nasal Cannula 3.00 11/17/16 16:00 98.7 87 24 145/52 94 11/17/16 15:00 83 11/17/16 14:00 88 11/17/16 13:00 83 11/17/16 12:00 92 11/17/16 12:00 98.9 88 22 131/84 90 11/17/16 11:00 90 11/17/16 10:00 86 11/17/16 09:00 85 11/17/16 08:00 82 11/17/16 08:00 98.9 85 22 146/79 91 11/17/16 07:52 Nasal Cannula 4.00 11/17/16 07:40 90 Nasal Cannula 4.00 11/17/16 07:00 82 I/O 11/17/16 11/17/16 11/17/16 11/18/16 11/18/16 11/18/16 07:00 15:00 23:00 07:00 15:00 23:00 Intake Total 340 ml 420 ml 480 ml Output Total 700 ml 675 ml 925 ml Balance -360 ml -255 ml -445 ml Intake Oral 240 ml 420 ml 480 ml IV Total 100 ml Output Urine Total 700 ml 675 ml 925 ml # Bowel Movements 1 0 Physical Exam VSS, afebrile Mild JVD at 30 deg. Lungs: decreased BS, clear today. Heart: RRR, no murmur. Ext: No C/C/E Neuro: Non-focal. Anxious. Laboratory Laboratory Tests Test 11/14/16 11/15/16 11/15/16 11/15/16 22:05 00:00 00:10 05:05 Prothrombin Time 15.7 SEC Prothromb Time International 1.4 RATIO Ratio Lactic Acid Level 1.1 mmol/L Magnesium Level 1.8 MG/DL Total Creatine Kinase 136 U/L Creatine Kinase MB 2.0 NG/ML B-Type Natriuretic Peptide 1954 PG/ML Urine Color YELLOW Urine Turbidity CLEAR Urine pH 5.5 Urine Specific [place] 1.008 Urine Protein NEG mg/dL Urine Glucose (UA) NEG mg/dL Urine Ketones NEG mg/dL Urine Occult Blood NEG Urine Nitrite NEG Urine Bilirubin NEG Urine Urobilinogen LESS THAN 2.0 MG/DL Urine Leukocyte Esterase NEG Urine RBC 1 /hpf Urine WBC LESS THAN 1 /hpf Urine Squamous Epithelial <1 /hpf Cells Urine Mucus FEW /lpf Microscopic Urinalysis Comment CULT NOT INDICATED Blood Gas Puncture Site RT RADIAL Blood Gas Patient Temperature 98.6 Blood Gas HCO3 25 mmol/L Blood Gas Base Excess 0.5 mmol/L Blood Gas Oxygen Saturation 83 % Arterial Blood pH 7.41 Arterial Blood Partial 40 mmHg Pressure CO2 Arterial Blood Partial 51 mmHG Pressure O2 Arterial Blood Oxygen Content 15.8 Vol % Arterial Blood 1.9 % Carboxyhemoglobin Arterial Blood Methemoglobin 1.9 % Blood Gas Hemoglobin 13.6 G/DL Oxygen Delivery Device NASAL CANNULA Blood Gas Liter Flow 5 L/M Triglycerides Level 50 MG/DL Cholesterol Level 141 MG/DL LDL Cholesterol 71 MG/DL HDL Cholesterol 60.1 MG/DL Cholesterol/HDL Ratio 2.34 RATIO Test 11/15/16 11/16/16 11/16/16 11/17/16 11:17 05:57 10:55 05:55 Troponin I 4.95 NG/ML Activated Partial 55.8 SEC Thromboplast Time White Blood Count 9.2 TH/MM3 Red Blood Count 4.03 MIL/MM3 Hemoglobin 12.6 GM/DL Hematocrit 38.6 % Mean Corpuscular Volume 95.9 FL Mean Corpuscular Hemoglobin 31.4 PG Mean Corpuscular Hemoglobin 32.8 % Concent Red Cell Distribution Width 14.2 % Platelet Count 273 TH/MM3 Mean Platelet Volume 8.5 FL Neutrophils (%) (Auto) 84.1 % Lymphocytes (%) (Auto) 7.9 % Monocytes (%) (Auto) 7.9 % Eosinophils (%) (Auto) 0.0 % Basophils (%) (Auto) 0.1 % Neutrophils # (Auto) 7.7 TH/MM3 Lymphocytes # (Auto) 0.7 TH/MM3 Monocytes # (Auto) 0.7 TH/MM3 Eosinophils # (Auto) 0.0 TH/MM3 Basophils # (Auto) 0.0 TH/MM3 CBC Comment DIFF FINAL Differential Comment Total Bilirubin 0.4 MG/DL Aspartate Amino Transf 17 U/L (AST/SGOT) Alanine Aminotransferase 18 U/L (ALT/SGPT) Alkaline Phosphatase 50 U/L Total Protein 6.6 GM/DL Albumin 2.8 GM/DL Sodium Level 140 MEQ/L Potassium Level 3.5 MEQ/L Chloride Level 103 MEQ/L Carbon Dioxide Level 32.6 MEQ/L Anion Gap 4 MEQ/L Blood Urea Nitrogen 15 MG/DL Creatinine 0.74 MG/DL Estimat Glomerular Filtration 74 ML/MIN Rate Random Glucose 111 MG/DL Calcium Level 8.5 MG/DL Assessment and Plan Problem List: (1) COPD exacerbation (2) Left lower lobe pneumonia (3) Hypoxia (4) Elevated brain natriuretic peptide (BNP) level (5) Elevated troponin (6) Pulmonary hypertension (7) Non-ST elevation myocardial infarction (NSTEMI), type 2 (8) Anxiety disorder Assessment and Plan Anxiolytics prn. Continue pulmonary Rx and antibiotics. Observe telemetry. No further inpatient cardia cw/u at this time. Contune all current cardiac meds. Plans for conservative management from cardiac standpoint unless progressive suspicious symptoms occur. CV stable to discharge from cardiac standpoint but patient wants to stay in hospital a few more days. I will follow as needed. Code Status Full Discussed Condition With Patient Problem Qualifiers (1) Left lower lobe pneumonia: Qualified Code: J18.1 - Pneumonia of left lower lobe due to infectious organism Vadim Peña MD Nov 18, 2016 06:54
[2016-11-18] MEDS: RESP: ALBUTEROL 2.5 MG/IPRATROPIUM 0.5 MG NEB (SCH) NEB ×3 (09:29→19:37)
[2016-11-18] MEDS: CEFUROXIME AXETIL 500 MG TAB PO SCH ×2 (10:20→21:57)
[2016-11-18] MEDS: CARVEDILOL 3.125 MG TAB PO SCH ×2 (10:20→21:57)
[2016-11-18] MEDS: CLOPIDOGREL 75 MG TAB PO SCH (10:21)
[2016-11-18] MEDS: guaiFENesin E.R. 600 MG TAB PO SCH ×2 (10:21→21:57)
[2016-11-18] MEDS: ASPIRIN EC 81 MG TABEC PO SCH (10:21)
[2016-11-18] MEDS: SPIRONOLACTONE 25 MG TAB PO SCH (10:21)
[2016-11-18] MEDS: predniSONE 20 MG TAB PO SCH (10:21)
[2016-11-18] MEDS: PRAVASTATIN SOD 20 MG TAB PO SCH (10:21)
[2016-11-18] MEDS: SODIUM CHLORIDE 0.9% FLUSH 5 ML FLUSH FLUSH SCH ×2 (10:22→21:56)
[2016-11-18] MEDS: UMECLIDINIUM 62.5 MCG/VILANTEROL 25 MCG INHALER INH SCH (10:22)
[2016-11-18] MEDS: ENOXAPARIN SODIUM 40 MG/0.4 ML SYRINGE SQ SCH (10:25)
--- NOTE | 2016-11-18 12:46 | HHI.PR ---
Subjective Remarks Follow-up COPD. Does not feel well because she was coughing all night. She does not want to go home. She lives with her son who works. She wants to go to [place]. She does not want to go to SNF. Discussed with RN Objective Vitals Vital Signs Date Time Temp Pulse Resp B/P Pulse Ox O2 Delivery O2 Flow Rate FiO2 11/18/16 09:31 92 Nasal Cannula 4.00 11/18/16 07:35 97.6 82 22 138/85 91 11/18/16 07:35 92 4.00 11/18/16 07:35 82 11/18/16 04:24 94 Nasal Cannula 3.00 11/18/16 04:00 97.5 85 20 132/86 92 11/18/16 04:00 85 11/18/16 00:14 72 11/18/16 00:14 98.7 72 16 114/67 100 11/18/16 00:06 94 Nasal Cannula 3.00 11/17/16 20:00 92 11/17/16 20:00 94 Nasal Cannula 3.00 11/17/16 20:00 97.7 92 20 145/87 93 11/17/16 19:29 94 Nasal Cannula 4.00 11/17/16 18:00 90 11/17/16 17:26 22 11/17/16 17:00 88 11/17/16 16:00 92 11/17/16 16:00 Nasal Cannula 3.00 11/17/16 16:00 98.7 87 24 145/52 94 11/17/16 15:00 83 11/17/16 14:00 88 11/17/16 13:00 83 I/O 11/17/16 11/17/16 11/17/16 11/18/16 11/18/16 11/18/16 07:00 15:00 23:00 07:00 15:00 23:00 Intake Total 340 ml 420 ml 480 ml Output Total 700 ml 675 ml 925 ml Balance -360 ml -255 ml -445 ml Intake Oral 240 ml 420 ml 480 ml IV Total 100 ml Output Urine Total 700 ml 675 ml 925 ml # Bowel Movements 1 0 Result Diagram: 11/16/16 1055 11/17/16 0555 Objective Remarks GENERAL: Well-developed well-nourished in no distress on 3 L SKIN: Warm and dry. HEAD: Atraumatic. Normocephalic. EYES: Pupils equal and round. No scleral icterus. No injection or drainage. ENT: No nasal bleeding or discharge. Mucous membranes pink and moist. NECK: Trachea midline. No JVD. CARDIOVASCULAR: Regular rate and rhythm. RESPIRATORY: No accessory muscle use. Decreased Breath sounds equal bilaterally. GASTROINTESTINAL: Abdomen soft, non-tender, nondistended. MUSCULOSKELETAL: Extremities without clubbing, cyanosis but with bilateral lower extremity edema right greater than left which is chronic. No obvious deformities. NEUROLOGICAL: Awake and alert. No obvious cranial nerve deficits. Motor grossly within normal limits. Five out of 5 muscle strength in the arms and legs. Normal speech. PSYCHIATRIC: Appropriate mood and affect; insight and judgment normal. Procedures none A/P Problem List: (1) NSTEMI (non-ST elevated myocardial infarction) ICD Code: I21.4 Status: Acute (2) COPD (chronic obstructive pulmonary disease) ICD Code: J44.9 Status: Chronic (3) PNA (pneumonia) ICD Code: J18.9 Status: Acute (4) Hypoxia ICD Code: R09.02 Status: Acute Assessment and Plan 1. NSTEMI: Trop 6.44, EKG w/ no acute ischemia, no c/o chest pain. Possibly due to demand ischemia from significant hypoxia. Follows w/ Dr. Zaidi as outpatient, he recommended medical management. S/p Heparin gtt continue aspirin , BB and statin 2. acute on chronic respiratory failure due to COPD exacerbation and pneumonia ; improving slowly Continue prednisone, DuoNeb q4 and q2h prn, Symbicort, Mucinex and wean oxygen. Switch IV Rocephin to by mouth Ceftin. Follow up repeat chest x-ray 3. Hyperlipidemia. Continue statin Consult PT and OT. Patient has deconditioning DVT Prophylaxis: Lovenox Discharge Planning If she [place] 3 L nasal cannula, she can be discharged to rehabilitation Jorge Hummel MD Nov 18, 2016 12:46
--- NOTE | 2016-11-18 12:48 | HHI.DS ---
Discharge Summary Admission Date Nov 14, 2016 at 23:47 Discharge Date: Nov 18, 2016 Admitting Diagnosis (1) NSTEMI (non-ST elevated myocardial infarction) ICD Code: I21.4 Diagnosis: Principal (2) COPD (chronic obstructive pulmonary disease) ICD Code: J44.9 Diagnosis: Principal (3) PNA (pneumonia) ICD Code: J18.9 Diagnosis: Principal (4) Hypoxia ICD Code: R09.02 Diagnosis: Principal Procedures none Brief History - From Admission This is an 86-year-old female with a PMH of HTN, COPD, O2 Dependent on 3L NC, Fibromyalgia and h/o TIA/CVA who was brought to the ER by EMS secondary to SOB and productive cough. Son provides most of the history, states symptoms have been ongoing for approx 2wks. Was seen by PCP and started on Z-Pack which she completed without significant improvement. Denies fever, chills or chest pain. Upon EMS arrival, pt noted to have O2 sat 82% on 3L w/ wheezing, s/p Solu- Medrol and DuoNeb w/ improvement. Son reports O2 sat normally "mid 80's" at home on oxygen. On arrival to ER, BP 131/79, HR 111, O2 sat 88% on 5L NC, Afebrile. Currently 95% O2 on NRM. CBC unremarkable. Chemistry essentially unremarkable. Troponin 6.44. BNP 1954. UA negative. ABG pH 7.41, PCO2 40, PO2 51. CXR with left base infiltrate. s/p Rocephin/Zithro in ER. Cardiology consulted by ER physician, started on Heparin gtt. Follows w/ Dr. Sal[place] and Dr. Brian Huynh as outpatient. CBC/BMP: 11/16/16 1055 11/17/16 0555 Significant Findings Laboratory Tests Test 11/15/16 11/15/16 11/16/16 11/16/16 14:07 21:35 05:57 10:55 Activated Partial 52.7 SEC 57.0 SEC 55.8 SEC Thromboplast Time (24.3-30.1) (24.3-30.1) (24.3-30.1) Neutrophils (%) (Auto) 84.1 % (16.0-70.0) Lymphocytes (%) (Auto) 7.9 % (9.0-44.0) Lymphocytes # (Auto) 0.7 TH/MM3 (1.0-4.8) Estimat Glomerular Filtration 61 ML/MIN (>89) Rate Random Glucose 128 MG/DL (74-106) Calcium Level 8.4 MG/DL (8.5-10.1) Albumin 2.8 GM/DL (3.4-5.0) Test 11/17/16 05:55 Carbon Dioxide Level 32.6 MEQ/L (21.0-32.0) Anion Gap 4 MEQ/L (5-15) Estimat Glomerular Filtration 74 ML/MIN (>89) Rate Random Glucose 111 MG/DL (74-106) Imaging Last Impressions Chest X-Ray 11/14/16 9652 Signed Impressions: Service Date/Time: Monday, November 14, 2016 22:55 - CONCLUSION: Left base infiltrate. Dayton Reza MD PE at Discharge GENERAL: Well-developed well-nourished in no distress on nasal cannula SKIN: Warm and dry. HEAD: Atraumatic. Normocephalic. EYES: Pupils equal and round. No scleral icterus. No injection or drainage. ENT: No nasal bleeding or discharge. Mucous membranes pink and moist. NECK: Trachea midline. No JVD. CARDIOVASCULAR: Regular rate and rhythm. RESPIRATORY: No accessory muscle use. Decreased Breath sounds equal bilaterally. GASTROINTESTINAL: Abdomen soft, non-tender, nondistended. MUSCULOSKELETAL: Extremities without clubbing, cyanosis but with bilateral lower extremity edema right greater than left which is chronic. No obvious deformities. NEUROLOGICAL: Awake and alert. No obvious cranial nerve deficits. Motor grossly within normal limits. Five out of 5 muscle strength in the arms and legs. Normal speech. PSYCHIATRIC: Appropriate mood and affect; insight and judgment normal. Hospital Course 1. NSTEMI: Trop 6.44, EKG w/ no acute ischemia, no c/o chest pain. Possibly due to demand ischemia from significant hypoxia. Follows w/ Dr. Zaidi as outpatient, he recommended medical management. S/p Heparin gtt continue aspirin , BB and statin 2. acute on chronic respiratory failure due to COPD exacerbation and pneumonia ; improving slowly Continue prednisone, DuoNeb q4 and q2h prn, Symbicort, Mucinex and wean oxygen. Switch IV Rocephin to by mouth Ceftin. 3. Hyperlipidemia. Continue statin Consult PT and OT. Patient has deconditioning DVT Prophylaxis: Lovenox Stable for discharge Pt Condition on Discharge: Stable Discharge Disposition: Rehab Inpatient Discharge Time: > 30 minutes Discharge Instructions DIET: Follow Instructions for: Heart Healthy Diet Activities you can perform: Regular-No Restrictions Activities to Avoid: Driving Follow up Referrals: Cardiology - 1 Week PCP Follow-up - 2-3 Days Pulmonology - 1 Week New Medications: Spironolactone (Aldactone) 25 Mg Tab 25 MG PO DAILY Blood Pressure Management #30 Ref 0 TAB Alprazolam (Xanax) 0.25 Mg Tab 0.125 MG PO Q8H PRN ANXIETY #21 TAB Carvedilol (Coreg) 3.125 Mg Tab 3.125 MG PO Q12HR Regulate Heart Beat #60 TAB Cefuroxime (Ceftin) 500 Mg Tab 500 MG PO Q12HR Infection #20 TAB Hydrocodone-Acetaminophen (Hydrocodone-Acetaminophen) 10-325 mg Tab 1 TAB PO Q6H PRN PAIN SCALE 1 TO 10/COUGH #28 TAB Pravastatin (Pravachol) 20 Mg Tab 20 MG PO DAILY Cholesterol Management #30 TAB Prednisone (Prednisone) 20 Mg Tab 20 MG PO DAILY Control Inflammation #7 TAB ([Spironolactone]) 25 MG TAB 25 MG PO DAILY Blood Pressure Management #30 TAB Continued Medications: Aspirin (Aspirin) 81 Mg Chew 81 MG CHEW DAILY Ref 0 TAB Clopidogrel (Plavix) 75 Mg Tab 75 MG PO DAILY Blood Clot Prevention #30 Ref 0 TAB Pantoprazole (Protonix) 40 Mg Tab 40 MG PO DAILY Reflux #30 Ref 0 TAB Umeclidinium-Vilanterol Inh (Anoro Ellipta Inh) 62.5-25 Mcg/Act Aero 1 PUFF INH DAILY COPD #1 Ref 0 INHALER Jorge Hummel MD Nov 18, 2016 12:48
--- NOTE | 2016-11-18 14:30 | RADRPT ---
EXAM DATE/TIME: 11/18/2016 12:16 [facility] COMPARISON: CHEST SINGLE AP, June 03, 2016, 14:15. CHEST SINGLE AP, November 14, 2016, 22:55. INDICATIONS : Pneumonia, cough, congestion. MEDICAL HISTORY : Right leg weakness. Urinary tract infection. Hypertension. COPD. SURGICAL HISTORY : section. Hernia. ENCOUNTER: Subsequent ACUITY: 3 weeks PAIN SCORE: 0/10 LOCATION: chest FINDINGS: AP lateral views the chest were obtained and demonstrate mild cardiomegaly. There is blunting of the right lateral and posterior costophrenic angle consistent with small effusion. No definite acute infi ltrates. There is no perihilar edema. Tracheal calcifications are noted as well as atherosclerotic ca lcifications in the aorta. There are overlying electrocardiogram leads. CONCLUSION: 1. The left costophrenic angle which could indicate scarring versus a small effusion. 2. No confluent infiltrates. 3. Mild cardiomegaly with no evidence of pulmonary edema. Manpreet Lockwood MD on November 18, 2016 at 14:26 Board Certified Radiologist. This report was verified electronically.
[2016-11-19] VITALS (15 sets, daily range): BP systolic 115–146; BP diastolic 73–90; PULSE 75–89; RESP 22–24; TEMP 97.4–97.7; O2SAT 88–95
[2016-11-19] MEDS: ACETAMINOPHEN/HYDROcodone 325 MG/10 MG TAB PO PRN (03:51)
[2016-11-19] MEDS ORDERED: PRED10 PO (05:16)
[2016-11-19] MEDS: RESP: ALBUTEROL 2.5 MG/IPRATROPIUM 0.5 MG NEB (SCH) NEB ×2 (08:52→13:46)
[2016-11-19] MEDS ORDERED: predniSONE 10 MG TAB PO SCH (09:00)
[2016-11-19] MEDS: CEFUROXIME AXETIL 500 MG TAB PO SCH (09:59)
[2016-11-19] MEDS: PRAVASTATIN SOD 20 MG TAB PO SCH (09:59)
[2016-11-19] MEDS: guaiFENesin E.R. 600 MG TAB PO SCH (09:59)
[2016-11-19] MEDS: CLOPIDOGREL 75 MG TAB PO SCH (09:59)
[2016-11-19] MEDS: CARVEDILOL 3.125 MG TAB PO SCH (09:59)
[2016-11-19] MEDS: ENOXAPARIN SODIUM 40 MG/0.4 ML SYRINGE SQ SCH (10:00)
[2016-11-19] MEDS: ASPIRIN EC 81 MG TABEC PO SCH (10:00)
[2016-11-19] MEDS: SPIRONOLACTONE 25 MG TAB PO SCH (10:00)
[2016-11-19] MEDS: SODIUM CHLORIDE 0.9% FLUSH 5 ML FLUSH FLUSH SCH (10:01)
[2016-11-19] MEDS: UMECLIDINIUM 62.5 MCG/VILANTEROL 25 MCG INHALER INH SCH (10:01)
--- NOTE | 2016-11-19 11:47 | OTSOAPIP ---
TIME SESSION COMPLETED: 1130 TREATMENT TIME: 5 MINS. CHART REVIEWED. RECEIVED ORDERS FROM DR. BRODY FOR OCCUPATIONAL THERAPY. UPON ARRIVAL PATIENT RETURNING TO BED AFTER SITTING UP IN CHAIR ALL MORNING. SON PRESENT IN ROOM. PATIENT POLITELY DECLINES OCCUPATIONAL THERAPY EVALUATION AT THIS TIME SHE IS TIRED AND WOULD LIKE TO REST BEFORE GOING TO SNF. SPOKE WITH CASE MANAGEMENT WHO CONFIRMED PATIENT HAS DISCHARGE ORDERS AND WILL BE TRANSPORTED TO SNF IN APPROXIMATELY ONE HOUR AND NO EVALUATION IS REQUIRED. INTERDISCIPLINARY COMMUNICATION: REVIEWED ELECTRONIC MEDICAL RECORD, SPOKE WITH RN, CASE MANAGEMENT Therapist: Lily Benitez,OTR/L Signature on file
[2016-11-19] MEDS: BENZOCAINE-MENTHOL (SUGAR FREE) 15 MG-3.6 MG LOZENGE BUCCAL PRN (12:07)
--- NOTE | 2016-11-19 13:00 | HHI.PR ---
Subjective Remarks Follow-up COPD. Agrees to rehabilitation. Discussed with RN and pulmonary Objective Vitals Vital Signs Date Time Temp Pulse Resp B/P Pulse Ox O2 Delivery O2 Flow Rate FiO2 11/19/16 12:00 83 11/19/16 11:40 92 Nasal Cannula 4.00 11/19/16 11:00 97.7 81 24 115/73 92 11/19/16 11:00 84 11/19/16 11:00 88 Nasal Cannula 3.00 11/19/16 10:00 86 11/19/16 09:00 83 11/19/16 08:00 89 11/19/16 07:00 93 Nasal Cannula 3.00 11/19/16 07:00 97.6 89 24 146/90 92 11/19/16 07:00 77 11/19/16 06:00 77 11/19/16 05:00 89 11/19/16 04:00 75 11/19/16 03:30 97.4 79 22 136/82 95 11/19/16 03:30 95 Nasal Cannula 3.00 11/19/16 03:00 82 11/19/16 02:00 86 11/19/16 01:00 81 11/19/16 00:00 76 11/18/16 23:30 95 Nasal Cannula 3.00 11/18/16 23:30 97.5 85 20 133/78 95 11/18/16 23:00 85 11/18/16 22:00 91 11/18/16 21:00 91 11/18/16 20:00 93 Nasal Cannula 3.00 11/18/16 20:00 89 11/18/16 20:00 97.8 95 20 132/84 93 11/18/16 19:40 91 3.00 11/18/16 19:00 91 11/18/16 18:00 91 11/18/16 17:00 80 11/18/16 16:00 82 11/18/16 15:35 96 11/18/16 15:35 97.8 96 22 91 11/18/16 15:35 89 3.00 11/18/16 15:00 88 11/18/16 14:00 81 I/O 11/18/16 11/18/16 11/18/16 11/19/16 11/19/16 11/19/16 07:00 15:00 23:00 07:00 15:00 23:00 Intake Total 480 ml 640 ml 240 ml Output Total 925 ml 900 ml 650 ml Balance -445 ml -260 ml -410 ml Intake Oral 480 ml 640 ml 240 ml Output Urine Total 925 ml 900 ml 650 ml # Bowel Movements 0 0 0 Result Diagram: 11/16/16 1055 11/17/16 0555 Objective Remarks GENERAL: Well-developed well-nourished in no distress on nasal cannula SKIN: Warm and dry. HEAD: Atraumatic. Normocephalic. EYES: Pupils equal and round. No scleral icterus. No injection or drainage. ENT: No nasal bleeding or discharge. Mucous membranes pink and moist. NECK: Trachea midline. No JVD. CARDIOVASCULAR: Regular rate and rhythm. RESPIRATORY: No accessory muscle use. Decreased Breath sounds equal bilaterally. GASTROINTESTINAL: Abdomen soft, non-tender, nondistended. MUSCULOSKELETAL: Extremities without clubbing, cyanosis but with bilateral lower extremity edema right greater than left which is chronic. No obvious deformities. NEUROLOGICAL: Awake and alert. No obvious cranial nerve deficits. Motor grossly within normal limits. Five out of 5 muscle strength in the arms and legs. Normal speech. PSYCHIATRIC: Appropriate mood and affect; insight and judgment normal. Procedures none A/P Problem List: (1) NSTEMI (non-ST elevated myocardial infarction) ICD Code: I21.4 Status: Acute (2) COPD (chronic obstructive pulmonary disease) ICD Code: J44.9 Status: Chronic (3) PNA (pneumonia) ICD Code: J18.9 Status: Acute (4) Hypoxia ICD Code: R09.02 Status: Acute Assessment and Plan 1. NSTEMI: Trop 6.44, EKG w/ no acute ischemia, no c/o chest pain. Possibly due to demand ischemia from significant hypoxia. Follows w/ Dr. Zaidi as outpatient, he recommended medical management. S/p Heparin gtt continue aspirin , BB and statin 2. acute on chronic respiratory failure due to COPD exacerbation and pneumonia ; improving slowly Continue prednisone, DuoNeb q4 and q2h prn, Symbicort, Mucinex and wean oxygen. Switch IV Rocephin to by mouth Ceftin. Taper prednisone 3. Hyperlipidemia. Continue statin Consult PT and OT. Patient has deconditioning DVT Prophylaxis: Lovenox Discharge Planning Stable for discharge Jorge Hummel MD Nov 19, 2016 13:00
--- NOTE | 2016-11-28 05:00 | MD ---
cc: Marcelina CANCINO ADMISSION DATE: 11/14/2016 DISCHARGE DATE: 11/19/2016 HISTORY: Ms. Brandt is an 86 year-old white female who I have followed with COPD, oxygen dependent, and generally quite debilitated. She had been in a gradual decline for some time, presented to the hospital with increasing shortness of breath and chest discomfort, and was found to have a non ST elevation myocardial infarction. She was seen by Dr. Peña, her regular day care aide, and it was elected to treat her medically. She also has underlying COPD and had a left lower lobe infiltrate, probably pneumonia. She received antibiotics, aerosolized bronchodilators as well as oxygen and corticosteroids and did improve. Follow up chest x-ray on November 18, revealed a small density at the left base, better than it had been previously and no evidence of pulmonary edema. No sputum could be obtained but her blood cultures were negative and a nasal aspirate was negative for influenzae. LABORATORY DATA: White blood cell counts were normal and arterial blood gas on presentation on five liters, her pH was 7.4, PCO2 40 with a PO2 of 51. At the time of discharge on 3 to 4 liters, her saturations were about 92%. PHYSICAL EXAMINATION: On the day of discharge, she was awake, alert, complaining of weakness and debility but she will be going to a [facility] facility for rehab. She was afebrile. Pulse was 86. Blood pressure 115/73, respiratory rate stable at 22. Chest: Minimally congested with no wheezes. She had a regular heart rhythm with no audible S3. She had no peripheral edema or cyanosis. DISPOSITION: She will be discharged on her aerosolized bronchodilators as well as antibiotics to complete a normal course for pneumonia, oxygen, and a prednisone taper. She will be sent to a [facility] facility for rehab and when she returns home I asked her to give our office a call so we can see her back as an outpatient. MD ENDY Zaragoza/MISA /1:39 PM /4:46 AM
== END 2016-11-19 12:46 | DRG 280 ==
LOC: NEPE 21:56 → NEDA 23:47 → HCIN 11-15 01:29
PROVIDERS: ADMIT Internal Medicine; ATTEND Internal Medicine
PROC: 5A09357 Assistance with Respiratory Ventilation, Less than 24 Consecutive Hours, Continuous Positive Airway Pressure (ICD-10-PCS; principal; 2016-11-19)
DX: I21.4 Non-ST elevation (NSTEMI) myocardial infarction (principal); J18.9 Pneumonia, unspecified organism; J96.21 Acute and chronic respiratory failure with hypoxia; J44.0 Chronic obstructive pulmonary disease with (acute) lower respiratory infection; Z99.81 Dependence on supplemental oxygen; I27.2 Other secondary pulmonary hypertension; I50.30 Unspecified diastolic (congestive) heart failure; J44.1 Chronic obstructive pulmonary disease with (acute) exacerbation; M79.7 Fibromyalgia; F41.9 Anxiety disorder, unspecified; E78.5 Hyperlipidemia, unspecified; I10 Essential (primary) hypertension; J06.9 Acute upper respiratory infection, unspecified; Z86.73 Personal history of transient ischemic attack (TIA), and cerebral infarction without residual deficits; Z88.0 Allergy status to penicillin; Z88.1 Allergy status to other antibiotic agents; Z91.041 Radiographic dye allergy status; Z66 Do not resuscitate
CPT/HCPCS: 36600; 71010; 71020; 80048; 80053; 80061; 81001; 82550; 82552; 82805; 83605; 83735; 83880; 84484; 85025; 85610; 85730; 87040; 87804; 93005; 93306; 94640; 94664; 96365; 96375; J0456; J0696; J1644; J1650; J1940; J2920; J7050; J7512

== ENCOUNTER 2016-11-19 20:26 | Inpatient (IN) | payer MEDICARE, OTHER ==
[~2016-11-19] VITALS: Ht 162.6 cm; Wt 70.0 kg
[2016-11-19] VITALS (10 sets, daily range): BP systolic 99–134; BP diastolic 57–77; PULSE 85–101; RESP 18–30; TEMP 97.8; O2SAT 66–96
[~2016-11-19 20:26] MED LIST changes: +ALPR.25 PO; +CARV3.125 PO; +CEFT500T3 PO; +HYDR-3583 PO; +PRAV20TA PO; +PRED10 PO; +SPIR25 PO; +Spironolactone PO
[2016-11-19] MEDS ORDERED: SODIUM CHLORIDE 0.9% FLUSH 5 ML FLUSH IVF PRN ×2 (20:45→23:15)
--- NOTE | 2016-11-19 20:59 | PD ---
HPI Chief Complaint: Respiratory Distress Time Seen by Provider: 20:36 Travel History International Travel<30 days: No Contact w/Intl Traveler<30days: No Traveled to known affect area: No History of Present Illness HPI 86-year-old female with history of COPD, recent admission for pneumonia and an STEMI, discharge back to [facility] on antibiotics and conservative management from a cardiology standpoint, brought in by ambulance from [facility] for evaluation of hypoxia and respiratory distress. According to EMS, the patient was found hypoxic during rounds this evening. Her O2 saturation was in the 50s on room air. She was transported here and given 3 albuterol nebulized treatments and IV Solu-Medrol by EMS. Upon arrival the patient is on 100% nonrebreather with O2 saturation 70%. She was started on BiPAP promptly, and O2 saturations increased to the high 80s. She denies chest pain. She states that her breathing is improved with breathing treatments and oxygen therapy. No abdominal pain. PFSH Past Medical History Arthritis: Yes Asthma: No Anxiety: No Depression: No Heart Rhythm Problems: No Cancer: No Cardiovascular Problems: Yes High Cholesterol: No Chemotherapy: No Chest Pain: No Congestive Heart Failure: No COPD: Yes Cerebrovascular Accident: Yes (tia) Coronary Artery Disease: No Diabetes: No Endocrine: No Genitourinary: Yes Hypertension: Yes Immune Disorder: No Kidney Stones: No Musculoskeletal: Yes (FIBROMALASIA) Neurologic: Yes Psychiatric: No Reproductive: No Respiratory: Yes (COPD 3L NC AT HOME CONTINUOUS) Migraines: No Radiation Therapy: No Renal Failure: No Seizures: No Sleep Apnea: No Thyroid Disease: No ?: Not Menopausal: Yes Past Surgical History Abdominal Surgery: Yes (HERNIA REPAIR) AICD: No Cardiac Surgery: No Section: Yes Ear Surgery: No Endocrine Surgery: No Eye Surgery: No Genitourinary Surgery: No Gynecologic Surgery: Yes (C/ SECTION) Oral Surgery: No Pacemaker: No Thoracic Surgery: No Other Surgery: Yes Social History Alcohol Use: No Tobacco Use: No Substance Use: No Allergies-Medications (Allergen,Severity, Reaction): Coded Allergies: Cipro (Verified Allergy, Severe, Rash, 11/14/16) Penicillin (Verified Allergy, Severe, Rash, 11/14/16) Contrast Media (Verified Allergy, Unknown, 11/15/16) Reported Meds & Prescriptions Reported Meds & Active Scripts Active Prednisone 10 Mg Tab 10 Mg PO DAILY Aldactone (Spironolactone) 25 Mg Tab 25 Mg PO DAILY [Spironolactone] 25 MG Tab 25 Mg PO DAILY Pravachol (Pravastatin) 20 Mg Tab 20 Mg PO DAILY Hydrocodone-Acetaminophen 10-325 mg Tab 1 Tab PO Q6H PRN Ceftin (Cefuroxime Axetil) 500 Mg Tab 500 Mg PO Q12HR Coreg (Carvedilol) 3.125 Mg Tab 3.125 Mg PO Q12HR Xanax (Alprazolam) 0.25 Mg Tab 0.125 Mg PO Q8H PRN Reported Anoro Ellipta Inh (Umeclidinium/Vilanterol) 62.5-25 Mcg/Act Aero 1 Puff INH DAILY Aspirin 81 Mg Chew 81 Mg CHEW DAILY Protonix (Pantoprazole Sodium) 40 Mg Tab 40 Mg PO DAILY Plavix (Clopidogrel Bisulfate) 75 Mg Tab 75 Mg PO DAILY Review of Systems Except as stated in HPI: all other systems reviewed are Neg Physical Exam Narrative GENERAL: Well-developed, well-nourished, elderly-appearing female, drowsy, easily arousable, no acute respiratory distress. SKIN: Warm and dry. No rash. HEAD: Atraumatic. Normocephalic. EYES: Pupils equal and round. No scleral icterus. No injection or drainage. ENT: Mucous membranes pink and moist. NECK: Trachea midline. No JVD. CARDIOVASCULAR: Regular rate and rhythm. RESPIRATORY: No accessory muscle use. Coarse breath sounds bilaterally. No retractions. Breath sounds equal bilaterally. GASTROINTESTINAL: Abdomen soft, non-tender, nondistended. MUSCULOSKELETAL: No obvious deformities. No clubbing. No cyanosis. No edema. NEUROLOGICAL: Drowsy. Easily arousable. No obvious cranial nerve deficits. Motor grossly within normal limits. Normal speech. PSYCHIATRIC: Appropriate mood and affect; insight and judgment normal. Data Data Last Documented VS Vital Signs Date Time Temp Pulse Resp B/P Pulse Ox O2 Delivery O2 Flow Rate FiO2 11/19/16 21:13 96 BiPAP 11/19/16 21:01 96 25 113/68 11/19/16 20:40 100 Orders Complete Blood Count With Diff (11/19/16 20:36) Comprehensive Metabolic Panel (11/19/16 20:36) B-Type Natriuretic Peptide (11/19/16 20:36) Act Partial Throm Time (Ptt) (11/19/16 20:36) Prothrombin Time / Inr (Pt) (11/19/16 20:36) Ckmb (Isoenzyme) Profile (11/19/16 20:36) Troponin I (11/19/16 20:36) Arterial Blood Gas (Abg) (11/19/16 20:36) Urinalysis - C+S If Indicated (11/19/16 20:36) Influenzae A/B Antigen (11/19/16 20:36) Blood Culture (11/19/16 20:36) Iv Access Insert/Monitor (11/19/16 20:36) Electrocardiogram (11/19/16 20:36) Ecg Monitoring (11/19/16 20:36) Oximetry (11/19/16 20:36) Oxygen Administration (11/19/16 20:36) Chest, Single Ap (11/19/16 20:36) Sodium Chloride 0.9% Flush (Ns Flush) (11/19/16 20:45) Albuterol-Ipratropium Neb (Duoneb Neb) (11/19/16 20:45) Resp Bipap / Cpap Non Invas Vt (11/19/16 20:36) Lactic Acid (11/19/16 20:36) Labs Laboratory Tests Test 11/19/16 11/19/16 20:40 21:30 White Blood Count 12.3 TH/MM3 Red Blood Count 4.61 MIL/MM3 Hemoglobin 14.8 GM/DL Hematocrit 44.0 % Mean Corpuscular Volume 95.6 FL Mean Corpuscular Hemoglobin 32.2 PG Mean Corpuscular Hemoglobin 33.6 % Concent Red Cell Distribution Width 14.0 % Platelet Count 280 TH/MM3 Mean Platelet Volume 9.0 FL Neutrophils (%) (Auto) 82.2 % Lymphocytes (%) (Auto) 10.7 % Monocytes (%) (Auto) 6.9 % Eosinophils (%) (Auto) 0.1 % Basophils (%) (Auto) 0.1 % Neutrophils # (Auto) 10.1 TH/MM3 Lymphocytes # (Auto) 1.3 TH/MM3 Monocytes # (Auto) 0.8 TH/MM3 Eosinophils # (Auto) 0.0 TH/MM3 Basophils # (Auto) 0.0 TH/MM3 CBC Comment DIFF FINAL Differential Comment Prothrombin Time 14.7 SEC Prothromb Time International 1.3 RATIO Ratio Activated Partial 23.7 SEC Thromboplast Time Sodium Level 138 MEQ/L Potassium Level 4.7 MEQ/L Chloride Level 100 MEQ/L Carbon Dioxide Level 28.6 MEQ/L Anion Gap 9 MEQ/L Blood Urea Nitrogen 16 MG/DL Creatinine 1.00 MG/DL Estimat Glomerular Filtration 53 ML/MIN Rate Random Glucose 156 MG/DL Lactic Acid Level 1.6 mmol/L Calcium Level 8.7 MG/DL Total Bilirubin 0.8 MG/DL Aspartate Amino Transf 32 U/L (AST/SGOT) Alanine Aminotransferase 29 U/L (ALT/SGPT) Alkaline Phosphatase 56 U/L Total Creatine Kinase 31 U/L Troponin I 3.81 NG/ML Total Protein 7.1 GM/DL Albumin 3.0 GM/DL Blood Gas Puncture Site LT RADIAL Blood Gas Patient Temperature 98.6 Blood Gas HCO3 28 mmol/L Blood Gas Base Excess 3.6 mmol/L Blood Gas Oxygen Saturation 93 % Arterial Blood pH 7.41 Arterial Blood Partial 45 mmHg Pressure CO2 Arterial Blood Partial 84 mmHG Pressure O2 Arterial Blood Oxygen Content 18.6 Vol % Arterial Blood 1.9 % Carboxyhemoglobin Arterial Blood Methemoglobin 1.7 % Blood Gas Hemoglobin 14.2 G/DL Oxygen Delivery Device BiPAP Blood Gas Ventilator Setting IPAP 16/[id number]/R20 Blood Gas Inspired Oxygen 100 % [facility] Medical Decision Making Medical Screen Exam Complete: Yes Emergency Medical Condition: Yes Medical Record Reviewed: Yes Interpretation(s) EKG: Sinus, rate 100, indeterminate axis, RBBB, T-wave inversions and ST depressions in inferior, septal, anterior, and lateral leads. Unchanged from prior. Differential Diagnosis Sepsis, pneumonia, pneumothorax, PE, pulmonary edema, hypoxia, hypercarbia Narrative Course The patient's oxygen saturation improved with BiPAP. She remains awake and alert and is tolerating BiPAP well. Patient's son is at the bedside. Discussion was had with the patient and the patient's son. She does not want to be intubated or have any extensive life- saving measures. DNR paper signed by me. The patient had an echocardiogram last week which showed normal EF with no wall motion abnormality. Chest x-ray read as global cardiomyopathy with mild basilar airspace disease. CBC shows WBC 12.3 with 82% neutrophils, otherwise unremarkable. CMP is unremarkable. Lactic acid is 1.6. Troponin is 3.81 which is trending down from most recent troponin. Case discussed with on-call hydrate thickener operator Dr. Lomax who will admit the patient to his service. Critical Care Narrative Aggregate critical care time was 40 minutes. Time to perform other separately billable procedures was not included in the critical care time. My time did not include minutes spent treating any other patients simultaneously or on activities that did not directly contribute to the patient's treatment. The services I provided to this patient were to treat and/or prevent clinically significant deterioration that could result in: , permanent disability, worsening clinical condition I provided critical care services requiring my management, as noted below: Chart data review, documentation time, medication orders and management, vital sign assessments/reviewing monitor data, ordering and reviewing lab tests, ordering and interpreting/reviewing x-rays and diagnostic studies, care of the patient and discussion of the patient with the admitting physicians. Diagnosis Primary Impression: COPD exacerbation Additional Impressions: Hypoxemia NSTEMI (non-ST elevated myocardial infarction) Admitting Information Admitting Physician Requests: Dimitris Small MD Nov 19, 2016 20:59
[2016-11-19] MEDS: RESP: ALBUTEROL 2.5 MG/IPRATROPIUM 0.5 MG NEB (SCH) INH (21:06)
[2016-11-19 21:20] LABS: APTT (PATIENT) 23.7 SEC (24.3-30.1); INTERNATIONAL NORMALIZED RATIO 1.3 RATIO; PROTHROMBIN TIME - PATIENT 14.7 SEC (9.8-11.6)
[2016-11-19 21:38] LABS: ALT (GPT) 29 U/L (10-53); ANION GAP 9 MEQ/L (5-15); AST (GOT) 32 U/L (15-37); BICARBONATE 28.6 MEQ/L (21.0-32.0); BLOOD UREA NITROGEN 16 MG/DL (7-18); CHLORIDE 100 MEQ/L (98-107); GLOMERULAR FILTRATION RATE 53 ML/MIN (>89); POTASSIUM 4.7 MEQ/L (3.5-5.1); SODIUM (NA) 138 MEQ/L (136-145)
[2016-11-19 21:40] LABS: AUTOMATED NEUTROPHIL # 10.1 TH/MM3 (1.8-7.7); BASOPHIL % 0.1 % (0.0-2.0); EOSINOPHIL % 0.1 % (0.0-4.0); HEMO FLAGS DIFF FINAL; LYMPH % 10.7 % (9.0-44.0); LYMPHOCYTE # 1.3 TH/MM3 (1.0-4.8); MEAN CELL VOLUME 95.6 FL (80.0-100.0); MEAN CORPUSCULAR HEMOGLOBIN 32.2 PG (27.0-34.0); MEAN CORPUSCULAR HGB CONC 33.6 % (32.0-36.0); MONO % 6.9 % (0.0-8.0); NEUT % 82.2 % (16.0-70.0); PLATELET COUNT 280 TH/MM3 (150-450); RED BLOOD COUNT 4.61 MIL/MM3 (4.00-5.30); WHITE BLOOD COUNT 12.3 TH/MM3 (4.0-11.0)
--- NOTE | 2016-11-19 21:41 | RADRPT ---
EXAM DATE/TIME: 11/19/2016 20:37 [facility] COMPARISON: CHEST SINGLE AP, November 14, 2016, 22:55. INDICATIONS : Shortness of breath. MEDICAL HISTORY : Unobtainable. SURGICAL HISTORY : Unobtainable. ENCOUNTER: Initial ACUITY: 1 day PAIN SCORE: Non-responsive. LOCATION: Bilateral chest FINDINGS: Global cardiomegaly present. Minimal basilar atelectasis. No significant effusion. No pneumothorax. CONCLUSION: 1. Global cardiomegaly with mild basilar airspace disease. Kwesi Wheeler MD on November 19, 2016 at 21:39 Board Certified Radiologist. This report was verified electronically.
[2016-11-19 21:42] LABS: ALKALINE PHOSPHATASE 56 U/L (45-117); TOTAL BILIRUBIN ADULT 0.8 MG/DL (0.2-1.0)
[2016-11-19 21:43] LABS: CREATINE KINASE 31 U/L (26-192)
[2016-11-19 21:45] LABS: BLOOD GAS BASE EXCESS 3.6 mmol/L (-2-2); BLOOD GAS CARBOXYHEMOGLOBIN 1.9 % (0-4); BLOOD GAS HCO3 28 mmol/L (22-26); BLOOD GAS METHEMOGLOBIN 1.7 % (0-2); BLOOD GAS O2 HGB SATURATION 93 % (90-100); BLOOD GAS OXYGEN CONTENT 18.6 Vol % (12.0-20.0); BLOOD GAS PCO2 45 mmHg (38-42); BLOOD GAS PO2 84 mmHG (61-120); BLOOD GAS TOTAL HGB 14.2 G/DL (12.0-16.0); TEMP CORR TO 98.6
[2016-11-19 21:46] LABS: CRITICAL VALUE NO; DRAW SITE LT RADIAL; FIO2 100 %; NUMBER OF ARTERIAL PUNCTURES 1; OXYGEN DEVICE BiPAP; STAT YES; ULNAR PULSE PRESENT; VENT SETTINGS IPAP 16/EPAP8/R20
[2016-11-19] MEDS ORDERED: ACETAMINOPHEN/HYDROcodone 325 MG/5 MG TAB PO ONE (22:15)
[2016-11-19] MEDS ORDERED: ALPRAZolam 0.25 MG TAB PO PRN (23:15)
[2016-11-19] MEDS ORDERED: ACETAMINOPHEN/HYDROcodone 325 MG/10 MG TAB PO PRN (23:15)
[2016-11-19] MEDS ORDERED: ENOXAPARIN SODIUM 30 MG/0.3 ML SYRINGE SQ SCH (23:15)
[2016-11-19] MEDS ORDERED: MISCELLANEOUS NURSING INFORMATION XX SCH (23:15)
[2016-11-19] MEDS ORDERED: CHLORHEXIDINE GLUCONATE 2 % 1 PACK (2 CLOTHS) TOP PRN (23:15)
[2016-11-19] MEDS ORDERED: ACETAMINOPHEN/HYDROcodone 325 MG/10 MG TAB PO ONE (23:15)
[2016-11-19] MEDS ORDERED: RESP: ALBUTEROL 2.5 MG/3 ML NEB (PRN) INH (23:15)
[2016-11-19] MEDS ORDERED: RESP: ALBUTEROL 2.5 MG/IPRATROPIUM 0.5 MG NEB (PRN) INH (23:15)
[2016-11-19] MEDS ORDERED: AZITHROMYCIN INJ 500 MG in SODIUM CHLOR 0.9% 250 ML INJ 250 ML IV SCH (23:30)
--- NOTE | 2016-11-19 23:47 | HHI.HP ---
HPI Service Critical Care Medicine Primary Care Physician Krissy Villa MD Admission Diagnosis COPD exacerbation, hypoxemia, NSTEMI Diagnosis: Travel History International Travel<30 Days: No Contact w/Intl Traveler <30 Da: No Traveled to Known Affected Are: No History of Present Illness HPI 86-year-old female with history of COPD, recent admission for pneumonia and a STEMI, she was seen by Dr. Brian brown and Dr. Peña during that admission and was discharged to [facility] today(11/17) on antibiotics and conservative management from a cardiology standpoint. Patient was noted to be hypoxic with O2 sats in the 50s for which EMS was called and she received 3 albuterol nebulizer treatments along with IV Solu-Medrol 125 mg by EMS. On arrival in the ER she was in 100% nonrebreather maintaining O2 sat 70%. She was initiated on BiPAP by ER physician with which her O2 sats gradually came up to the mid 90s. She explicitly told ER physician she does not want intubation or CPR. Patient was accepted for admission by critical care medicine service. When I evaluated the patient has son was at the bedside. He tells me that he has been taking care of her for years and that she has been on 2 L nasal cannula for at least 2 years and then was increased to 3 L/m about 7 months ago. She does have advanced COPD and is followed by Dr. Brian brown. He also tells me that she has fibromyalgia and takes hydrocodone 10 mg every 6 hours and that she is in pain currently. When I evaluated the patient she was on BiPAP with full facemask and appeared to be tolerating it well. She was awake and alert and was requesting a hydrocodone. Patient's son also tells me that she does not want CPR or intubation if her condition were to worsen and is interested in talking to palliative care service as he understands that she may not have very long to live based on her advanced COPD and recent MS. Currently patient denies any chest pain or nausea. History PFSH Past Medical History Arthritis: Yes Asthma: No Anxiety: No Depression: No Heart Rhythm Problems: No Cancer: No Cardiovascular Problems: Yes High Cholesterol: No Chemotherapy: No Chest Pain: No Congestive Heart Failure: No COPD: Yes Cerebrovascular Accident: Yes (tia) Coronary Artery Disease: No Diabetes: No Endocrine: No Genitourinary: Yes Hypertension: Yes Immune Disorder: No Kidney Stones: No Musculoskeletal: Yes (FIBROMYALGIA) Neurologic: Yes Psychiatric: No Reproductive: No Respiratory: Yes (COPD 3L NC AT HOME CONTINUOUS) Migraines: No Radiation Therapy: No Renal Failure: No Seizures: No Sleep Apnea: No Thyroid Disease: No ?: Not Menopausal: Yes Past Surgical History Abdominal Surgery: Yes (HERNIA REPAIR) AICD: No Cardiac Surgery: No Section: Yes Ear Surgery: No Endocrine Surgery: No Eye Surgery: No Genitourinary Surgery: No Gynecologic Surgery: Yes (C/ SECTION) Oral Surgery: No Pacemaker: No Thoracic Surgery: No Other Surgery: Yes Social History Alcohol Use: No Tobacco Use: No Substance Use: No Allergies-Medications Allergies-Medications (Allergen,Severity, Reaction): Coded Allergies: Cipro (Verified Allergy, Severe, Rash, 11/14/16) Penicillin (Verified Allergy, Severe, Rash, 11/14/16) Contrast Media (Verified Allergy, Unknown, 11/15/16) Reported Meds & Prescriptions Reported Meds & Active Scripts Active Prednisone 10 Mg Tab 10 Mg PO DAILY Aldactone (Spironolactone) 25 Mg Tab 25 Mg PO DAILY [Spironolactone] 25 MG Tab 25 Mg PO DAILY Pravachol (Pravastatin) 20 Mg Tab 20 Mg PO DAILY Hydrocodone-Acetaminophen 10-325 mg Tab 1 Tab PO Q6H PRN Ceftin (Cefuroxime Axetil) 500 Mg Tab 500 Mg PO Q12HR Coreg (Carvedilol) 3.125 Mg Tab 3.125 Mg PO Q12HR Xanax (Alprazolam) 0.25 Mg Tab 0.125 Mg PO Q8H PRN Reported Anoro Ellipta Inh (Umeclidinium/Vilanterol) 62.5-25 Mcg/Act Aero 1 Puff INH DAILY Aspirin 81 Mg Chew 81 Mg CHEW DAILY Protonix (Pantoprazole Sodium) 40 Mg Tab 40 Mg PO DAILY Plavix (Clopidogrel Bisulfate) 75 Mg Tab 75 Mg PO DAILY ROS Review of Systems Except as stated in HPI: all other systems reviewed are Neg Physical Exam Vital Signs Vital Signs Date Time Temp Pulse Resp B/P Pulse Ox O2 Delivery O2 Flow Rate FiO2 11/19/16 22:30 90 26 114/77 95 BiPAP 11/19/16 21:51 93 22 116/65 94 BiPAP 11/19/16 21:13 96 BiPAP 11/19/16 21:01 87 BiPAP 11/19/16 21:01 96 25 113/68 87 BiPAP 11/19/16 20:53 84 BiPAP 11/19/16 20:48 99 30 117/66 83 BiPAP 11/19/16 20:40 84 100 11/19/16 20:36 78 BiPAP 11/19/16 20:29 101 28 99/57 66 Physical Exam HEENT/Neuro: No pallor or icterus, tongue moist, NICKOLAS, Awake alert oriented 3 , nonfocal grossly, moving all 4 extremities Neck: No JVD Chest/pulmonary: On BiPAP with full facemask, good air entry bilaterally, scattered rhonchi bilaterally, no wheezing Cardiovascular: S1-S2 regular no gallop or murmur GI/abdomen: Soft, nontender, bowel sounds present Extremities: Warm bilaterally, no edema Laboratory Laboratory Tests Test 11/19/16 11/19/16 20:40 21:30 White Blood Count 12.3 Red Blood Count 4.61 Hemoglobin 14.8 Hematocrit 44.0 Mean Corpuscular Volume 95.6 Mean Corpuscular Hemoglobin 32.2 Mean Corpuscular Hemoglobin 33.6 Concent Red Cell Distribution Width 14.0 Platelet Count 280 Mean Platelet Volume 9.0 Neutrophils (%) (Auto) 82.2 Lymphocytes (%) (Auto) 10.7 Monocytes (%) (Auto) 6.9 Eosinophils (%) (Auto) 0.1 Basophils (%) (Auto) 0.1 Neutrophils # (Auto) 10.1 Lymphocytes # (Auto) 1.3 Monocytes # (Auto) 0.8 Eosinophils # (Auto) 0.0 Basophils # (Auto) 0.0 CBC Comment DIFF FINAL Differential Comment Prothrombin Time 14.7 Prothromb Time International 1.3 Ratio Activated Partial 23.7 Thromboplast Time Sodium Level 138 Potassium Level 4.7 Chloride Level 100 Carbon Dioxide Level 28.6 Anion Gap 9 Blood Urea Nitrogen 16 Creatinine 1.00 Estimat Glomerular Filtration 53 Rate Random Glucose 156 Lactic Acid Level 1.6 Calcium Level 8.7 Total Bilirubin 0.8 Aspartate Amino Transf 32 (AST/SGOT) Alanine Aminotransferase 29 (ALT/SGPT) Alkaline Phosphatase 56 Total Creatine Kinase 31 Troponin I 3.81 B-Type Natriuretic Peptide 4298 Total Protein 7.1 Albumin 3.0 Blood Gas Puncture Site LT RADIAL Blood Gas Patient Temperature 98.6 Blood Gas HCO3 28 Blood Gas Base Excess 3.6 Blood Gas Oxygen Saturation 93 Arterial Blood pH 7.41 Arterial Blood Partial 45 Pressure CO2 Arterial Blood Partial 84 Pressure O2 Arterial Blood Oxygen Content 18.6 Arterial Blood 1.9 Carboxyhemoglobin Arterial Blood Methemoglobin 1.7 Blood Gas Hemoglobin 14.2 Oxygen Delivery Device BiPAP Blood Gas Ventilator Setting IPAP 16/EPAP8/R20 Blood Gas Inspired Oxygen 100 Date/Time Procedure Status Source Growth 11/19/16 20:35 Aerobic Blood Culture Received Blood Peripheral Pending 11/19/16 20:35 Anaerobic Blood Culture Received Blood Peripheral Pending Result Diagram: 11/19/16203911/19/162039 Imaging Last Impressions Chest X-Ray 11/19/162035 Signed Impressions: Service Date/Time: Saturday, November 19, 2016 20:37 - CONCLUSION: 1. Global cardiomegaly with mild basilar airspace disease. Kwesi Wheeler MD Assessment and Plan Assessment and Plan 86-year-old female with: Acute on chronic respiratory failure requiring BiPAP COPD exacerbation Recent acute MS with elevated troponin Pulmonary hypertension Right ventricular failure probably resulting in BNP elevation Possible pneumonia Fibromyalgia Advanced COPD on home oxygen Plan: Neuro: Continue hydrocodone/acetaminophen 10/325 mg by mouth every 6 hourly as needed for pain. Follow neuro status Cardiovascular: Watch for hypotension. Continue aspirin, beta alberto. Cardiology recommended conservative management during last admission. Significant RV dysfunction and pulmonary hypertension on previous echo noted. Pulmonary: Continue BiPAP with full facemask, bronchodilators, Solu-Medrol. Patient does not want intubation if respiratory status declines despite BiPAP. GI/liver: Nothing by mouth for now. If respiratory status permits, we will initiate by mouth diet in a.m. Renal/: Strict intake output, monitor and replete electro lites, follow BUN/ creatinine. Shane catheterization ID: Empiric antibiotic coverage with IV cefepime and Zithromax. Patient did receive Ceftin and Rocephin during last hospitalization so should tolerate cephalosporin Endocrine: Watch for hyperglycemia, SSI for glycemic control if needed Prophylaxis: PPI/SCDs/Lovenox Patient's son is in agreement with his mother's decision that if her condition declines she would not want further aggressive treatment including CPR or intubation. I discussed palliative care and he is interested in talking with them during this hospitalization.. Condition critical Time spent on critical care excluding procedures 60 minutes Wagner Lomax MD Nov 19, 2016 23:47
[2016-11-20] MEDS ORDERED: CEFEPIME INJ 1,000 MG in SODIUM CHLORIDE 0.9% INJ 100 ML IV SCH ×2
[2016-11-20 00:10] LABS: BACTERIA, URINE RARE /hpf; BLOOD, URINE SMALL (NEG); GLUCOSE,URINE NEG (NEG); KETONE, URINE NEG (NEG); MUCUS URINE FEW /lpf (OCC); NITRITE,URINE NEG (NEG); SQUAMOUS EPITHELIAL CELL URINE <1 /hpf (0-5); URINE COLOR YELLOW (YELLW/STRAW)
[2016-11-20 00:11] LABS: COMMENT (UR) CATH-CULTURE IND; CULTURE IF INDICATED CATH CULTURE IND
[2016-11-20 00:39] VITALS: BP 106/60; PULSE 88; RESP 16
[2016-11-20] MEDS ORDERED: NALOXONE HCL 2 MG/2 ML VIAL ONE (00:49)
[2016-11-20] MEDS ORDERED: MORPHINE SULFATE 4 MG/ML INJ IV PUSH PRN (01:15)
--- NOTE | 2016-11-20 01:21 | HHI.PR ---
Addendum to Inpatient Note Addendum Reason: Additional Documentation Additional Information Patient became lethargic with drop in O2 sats the 70s. She was given Narcan with some improvement in neurologic status however her respiratory rate went up in the 30s and her O2 stats remained in the upper 70s with increasing respiratory distress despite BiPAP. Spoke with the patient's family at bedside. I discussed that patient's respiration status was worsening despite BiPAP. They do not want intubation. I discussed option of comfort measures and they voiced understanding. Patient's son is agreeable with focusing more on comfort as they do not want the patient to suffer anymore. They understand that administration of narcotics for anxiety and discomfort may suppress respiration. I also discussed option of taking patient off BiPAP and focusing only on comfort measures. At this point we are going to initiate morphine when necessary for anxiety/discomfort and patient's son is deciding regarding transitioning to full comfort measures including discontinuation of BiPAP. Prognosis appears extremely poor. Patient appears to be terminal. She is a DNR status. Additional time spent on critical care: 30 minutes Wagner Lomax MD Nov 20, 2016 01:21
[2016-11-20 01:30] VITALS: BP 113/66; PULSE 104; RESP 14; O2SAT 58
[2016-11-20] MEDS ORDERED: MIDAZOLAM HCL 2 MG/2 ML VIAL IV PUSH PRN (01:30)
[2016-11-20] MEDS ORDERED: MORPHINE SULFATE 8 MG/ML INJ IV PUSH PRN (02:00)
[2016-11-20] MEDS ORDERED: LORazepam 2 MG/ML VIAL IV PRN ×2 (02:00)
[2016-11-20] MEDS ORDERED: HYOSCYAMINE 0.5 MG/ML AMP IV PRN (02:00)
[2016-11-20] MEDS ORDERED: LORazepam 2 MG/ML VIAL IVS PRN (02:00)
[2016-11-20] MEDS ORDERED: methylPREDNISolone SOD SUCC 40 MG/1 ML VIAL IV PUSH SCH (02:00)
[2016-11-20] MEDS ORDERED: CHLORHEXIDINE GLUCONATE 2 % 1 PACK (2 CLOTHS) TOP SCH (04:00)
[2016-11-20] MEDS ORDERED: CHLORHEXIDINE 0.12% (ORAL KIT) 15 ML CUP MT SCH (08:00)
[2016-11-20] MEDS ORDERED: CARVEDILOL 3.125 MG TAB PO SCH (09:00)
[2016-11-20] MEDS ORDERED: PRAVASTATIN SOD 20 MG TAB PO SCH (09:00)
[2016-11-20] MEDS ORDERED: ASPIRIN 81 MG CHEW TAB CHEW SCH (09:00)
[2016-11-20] MEDS ORDERED: PANTOPRAZOLE SODIUM 40 MG VIAL IV SCH (09:00)
[2016-11-20] MEDS ORDERED: SPIRONOLACTONE 25 MG TAB PO SCH (09:00)
[2016-11-20] MEDS ORDERED: SODIUM CHLORIDE 0.9% FLUSH 5 ML FLUSH IVF SCH (09:00)
[2016-11-20] MEDS ORDERED: CLOPIDOGREL 75 MG TAB PO SCH (09:00)
--- NOTE | 2016-11-22 22:40 | EKG ---
Date Performed: 11/19/2016 Time Performed: 20:36:57 PTAGE: 86 years EKG: SINUS TACHYCARDIA LEFT ATRIAL ENLARGEMENT INDETERMINATE AXIS RIGHT BUNDLE BRANCH BLOCK CARLOS ED T-WAVE ABNORMALITY, CONSIDER ANTEROLATERAL ISCHEMIA MODERATE T-WAVE ABNORMALITY, CONSIDER INFERIOR ISCHEMIA ABNORMAL ECG Compared to the PREVIOUS TRACING from 11/14/16, no significant change DOCTOR: Zack Delgadillo Interpretating Date/Time 11/22/2016 22:38:51
== END 2016-11-20 03:43 | disposition expired | DRG 189 ==
LOC: NEPE 20:26 → NEDA 21:55
PROVIDERS: ADMIT Internal Medicine Critical Care Medicine; ATTEND Internal Medicine Critical Care Medicine
PROC: 5A09357 Assistance with Respiratory Ventilation, Less than 24 Consecutive Hours, Continuous Positive Airway Pressure (ICD-10-PCS; principal; 2016-11-19)
DX: J96.21 Acute and chronic respiratory failure with hypoxia (principal); I21.4 Non-ST elevation (NSTEMI) myocardial infarction; J18.9 Pneumonia, unspecified organism; J44.0 Chronic obstructive pulmonary disease with (acute) lower respiratory infection; I27.2 Other secondary pulmonary hypertension; Z99.81 Dependence on supplemental oxygen; I50.9 Heart failure, unspecified; J44.1 Chronic obstructive pulmonary disease with (acute) exacerbation; M79.7 Fibromyalgia; Z66 Do not resuscitate; F41.9 Anxiety disorder, unspecified; Z88.0 Allergy status to penicillin; Z88.1 Allergy status to other antibiotic agents; Z91.041 Radiographic dye allergy status; Z86.73 Personal history of transient ischemic attack (TIA), and cerebral infarction without residual deficits
CPT/HCPCS: 36600; 71010; 80053; 81001; 82550; 82805; 83605; 83880; 84484; 85025; 85610; 85730; 87040; 87086; 93005; 94002; 94640; 94664; J0456; J1650; J2250; J2270; J2310; J7050